=== PATIENT | female | born 1950 | race American Indian/Alaskan Native ===

== ENCOUNTER 2019-09-13 11:05 | Inpatient (IN) | payer MEDICARE ==
[2019-09-13] MEDS ORDERED: MORPHINE 2 MG/1 ML INJ IV ONE (13:14)
--- NOTE | 2019-09-13 13:29 | XRay Report ---
CHEST 1 VIEW INDICATION: chest pain. COMPARISON: 09/24/2013 FINDINGS: Support devices: None. Heart: Mild cardiomegaly. Pulmonary vasculature: Indistinct. Lungs/Pleura: A left apical lung mass is new compared to the previous exam. There is retraction of th e left hilum and new reticular interstitial opacities of the left lung. Subsegmental atelectasis vers us scar in the left midlung. Mild widening of the left pleural space, less than on the last exam. Ret icular interstitial opacities of the right lung are new since the last exam. No pleural effusion. No pneumothorax. Additional findings: Median sternotomy wires. IMPRESSION: 1. New left apical lung mass. 2. Bilateral reticular interstitial opacities are nonspecific. The differential includes CHF, pneumon ia and metastatic disease. Signer Name: Samir Bravo MD Signed: 09/13/2019 1:24 PM Workstation Name: [id number]
[2019-09-13 13:35] LABS: Basophils % (Auto) 1.1 % (0.0-1.8); Eosinophils # (Auto) 0.1 K/mm3 (0.0-0.4); Eosinophils % (Auto) 1.3 % (0.0-4.3); Hematocrit 35.9 % (30.3-42.9); Hemoglobin 11.9 gm/dl (10.1-14.3); Lymphocytes # (Auto) 0.6 K/mm3 (1.2-5.4); Lymphocytes % (Auto) 16.5 % (13.4-35.0); Mean Corpuscular HGB Conc 33 % (30-34); Mean Corpuscular Volume 93 fl (79-97); Monocytes # (Auto) 0.3 K/mm3 (0.0-0.8); Monocytes % (Auto) 7.3 % (0.0-7.3); Platelet Count 140 K/mm3 (140-440); Red Blood Count 3.85 M/mm3 (3.65-5.03); Red Cell Distribution Width 18.5 % (13.2-15.2)
[2019-09-13 13:44] LABS: INR 1.08 (0.87-1.13)
[2019-09-13 13:45] LABS: Partial Thromboplastin Time 29.2 Sec. (24.2-36.6)
--- NOTE | 2019-09-13 13:47 | Emergency Department Report ---
ED Chest Pain HPI - General Chief Complaint: Chest Pain Stated Complaint: CHEST PAIN Time Seen by Provider: 09/13/19 11:19 Source: patient, EMS Mode of arrival: Stretcher Limitations: No Limitations - History of Present Illness Initial Comments: 59-year-old female with history of hypertension, CAD, COPD on 2 L O2, ESRD, lung cancer that was recently diagnosed last week, presents to ED with left-sided chest pain. Patient states pain began during dialysis today. She only received approximately one hour of dialysis. Was last dialyzed 4 days ago, missed her dialysis on yesterday which is why she was at dialysis today. She reports sharp left-sided chest pain radiating into the left arm with associated shortness of breath. Patient reports she was recently diagnosed with lung cancer, has not yet started any treatment. Nephrology: Dr Leo ARREOLA Complaint: chest pain -: This morning Onset: during rest Pain Location: left chest Pain Radiation: LUE Severity: moderate Severity scale (0 -10): 9 Quality: sharp Consistency: constant Improves With: nothing Worsens With: nothing re: dyspnea. denies: nausea, vomting, diaphoresis Other Symptoms: denies: leg swelling - Related Data Home Medications Medication Instructions Recorded Confirmed Last Taken Aspirin [Aspirin BABY CHEW TAB] 81 mg PO QDAY 04/23/13 09/11/13 09/11/13 Atorvastatin [Lipitor] 40 mg PO QHS 04/23/13 09/11/13 09/10/13 Clopidogrel Bisulfate [Plavix] 75 mg PO QDAY 04/23/13 09/11/13 09/11/13 Doxazosin [Cardura] 2 mg PO QDAY 04/23/13 09/11/13 09/11/13 Furosemide [Lasix TAB] 40 mg PO BID 04/23/13 09/11/13 09/11/13 Insulin Aspart (Nf) [NovoLOG 100 6 units SQ TIDAC 04/23/13 09/11/13 07/28/13 UNITS/ML VIAL] Insulin Detemir [Levemir Flexpen] 20 unit SUB-Q QDAY 04/23/13 09/11/13 07/28/13 Isosorbide Mononitrate 120 mg PO QDAY 04/23/13 09/11/13 09/11/13 NIFEdipine [NIFEdipine XL] 90 mg PO QDAY 04/23/13 09/11/13 09/11/13 Nitroglycerin [place] [Nitromist] 1 spray PO PRN PRN 04/23/13 09/11/13 Unknown Oxycodone HCl [oxyCODONE] 5 mg PO Q4-6H PRN 04/23/13 09/11/13 09/11/13 carvediloL [Coreg] 12.5 mg PO BID 04/23/13 09/11/13 09/11/13 cloNIDine [Catapres] 0.2 mg PO TID 04/23/13 09/11/13 09/11/13 hydrALAZINE [Apresoline TAB] 100 mg PO TID 04/23/13 09/11/13 09/11/13 Previous Rx's Medication Instructions Recorded Last Taken Type labetaloL [Labetalol 100mg TAB] 100 mg PO BID #60 tablet 07/24/13 09/11/13 Rx Aspirin [Aspirin BABY CHEW TAB] 81 mg PO QDAY #30 tab.chew 10/03/13 Unknown Rx Clopidogrel [Plavix] 75 mg PO QDAY #30 tablet 10/03/13 Unknown Rx Doxazosin [Cardura] 2 mg PO QDAY #30 tablet 10/03/13 Unknown Rx HYDROcodone/APAP 5-325 [[place] 1 each PO Q4H PRN #60 tablet 10/03/13 Unknown Rx 5-325 mg TAB] NIFEdipine XL [Procardia Xl] 60 mg PO Q12HR #30 tablet 10/03/13 Unknown Rx Ranolazine ER [Ranexa ER] 500 mg PO BID #60 tablet 10/03/13 Unknown Rx Rosuvastatin (Nf) [Crestor] 10 mg PO QHS #30 tablet 10/03/13 Unknown Rx carvediloL [Coreg] 25 mg PO BID #60 tablet 10/03/13 Unknown Rx hydrALAZINE [Apresoline TAB] 100 mg PO Q8HR #90 tablet 10/03/13 Unknown Rx traMADoL [Ultram 50 MG tab] 50 mg PO Q6H PRN #60 tablet 10/03/13 Unknown Rx Allergies Allergy/AdvReac Type Severity Reaction Status Date / Time No Known Allergies Allergy Verified 09/13/19 17:29 Heart Score - HEART Score History: Slightly suspicious EKG: Non-specific Age: > 65 Risk factors: > 3 risk factors or hx of atherosclerotic disease Troponin: 1-3x normal limit HEART Score: 6 ED Review of Systems ROS: Stated complaint: CHEST PAIN Other details as noted in HPI Comment: All other systems reviewed and negative Constitutional: denies: chills, fever Respiratory: shortness of breath Cardiovascular: chest pain ED Past Medical Hx - Past Medical History Hx Hypertension: Yes Hx CVA: Yes (left sided weakness residual) Hx Heart Attack/AMI: Yes (2006 - CABG, 2012 - stents) Hx Congestive Heart Failure: Yes Hx Diabetes: Yes Hx Deep Vein Thrombosis: No Hx Pulmonary Embolism: No Hx Liver Disease: No Hx Renal Disease: Yes Hx Sickle Cell Disease: No Hx Seizures: No Hx Asthma: No Hx COPD: No Hx Tuberculosis: No Hx Dementia: No Hx HIV: No - Surgical History Hx Coronary Stent: Yes Hx Open Heart Surgery: Yes (CABG) Hx Pacemaker: No Hx Internal Defibrillator: No - Social History Smoking Status: Never Smoker Substance Use Type: None - Medications Home Medications: Home Medications Medication Instructions Recorded Confirmed Last Taken Type Aspirin [Aspirin BABY CHEW TAB] 81 mg PO QDAY 04/23/13 09/11/13 09/11/13 History Atorvastatin [Lipitor] 40 mg PO QHS 04/23/13 09/11/13 09/10/13 History Clopidogrel Bisulfate [Plavix] 75 mg PO QDAY 04/23/13 09/11/13 09/11/13 History Doxazosin [Cardura] 2 mg PO QDAY 04/23/13 09/11/13 09/11/13 History Furosemide [Lasix TAB] 40 mg PO BID 04/23/13 09/11/13 09/11/13 History Insulin Aspart (Nf) [NovoLOG 100 6 units SQ TIDAC 04/23/13 09/11/13 07/28/13 History UNITS/ML VIAL] Insulin Detemir [Levemir Flexpen] 20 unit SUB-Q QDAY 04/23/13 09/11/13 07/28/13 History Isosorbide Mononitrate 120 mg PO QDAY 04/23/13 09/11/13 09/11/13 History NIFEdipine [NIFEdipine XL] 90 mg PO QDAY 04/23/13 09/11/13 09/11/13 History Nitroglycerin [place] [Nitromist] 1 spray PO PRN PRN 04/23/13 09/11/13 Unknown History Oxycodone HCl [oxyCODONE] 5 mg PO Q4-6H PRN 04/23/13 09/11/13 09/11/13 History carvediloL [Coreg] 12.5 mg PO BID 04/23/13 09/11/13 09/11/13 History cloNIDine [Catapres] 0.2 mg PO TID 04/23/13 09/11/13 09/11/13 History hydrALAZINE [Apresoline TAB] 100 mg PO TID 04/23/13 09/11/13 09/11/13 History labetaloL [Labetalol 100mg TAB] 100 mg PO BID #60 tablet 07/24/13 09/11/13 09/11/13 Rx Aspirin [Aspirin BABY CHEW TAB] 81 mg PO QDAY #30 tab.chew 10/03/13 Unknown Rx Clopidogrel [Plavix] 75 mg PO QDAY #30 tablet 10/03/13 Unknown Rx Doxazosin [Cardura] 2 mg PO QDAY #30 tablet 10/03/13 Unknown Rx HYDROcodone/APAP 5-325 [[place] 1 each PO Q4H PRN #60 tablet 10/03/13 Unknown Rx 5-325 mg TAB] NIFEdipine XL [Procardia Xl] 60 mg PO Q12HR #30 tablet 10/03/13 Unknown Rx Ranolazine ER [Ranexa ER] 500 mg PO BID #60 tablet 10/03/13 Unknown Rx Rosuvastatin (Nf) [Crestor] 10 mg PO QHS #30 tablet 10/03/13 Unknown Rx carvediloL [Coreg] 25 mg PO BID #60 tablet 10/03/13 Unknown Rx hydrALAZINE [Apresoline TAB] 100 mg PO Q8HR #90 tablet 10/03/13 Unknown Rx traMADoL [Ultram 50 MG tab] 50 mg PO Q6H PRN #60 tablet 10/03/13 Unknown Rx ED Physical Exam - General Limitations: No Limitations General appearance: alert, in no apparent distress - Head Head exam: Present: atraumatic, normocephalic - Eye Eye exam: Present: normal appearance - ENT ENT exam: Present: mucous membranes moist - Neck Neck exam: Present: normal inspection - Respiratory Respiratory exam: Present: normal lung sounds bilaterally. Absent: respiratory distress - Cardiovascular Cardiovascular Exam: Present: regular rate, bradycardia - GI/Abdominal GI/Abdominal exam: Present: soft. Absent: distended, tenderness - Extremities Exam Extremities exam: Present: normal inspection - Neurological Exam Neurological exam: Present: alert, oriented X3 - Psychiatric Psychiatric exam: Present: normal affect, normal mood - Skin Skin exam: Present: warm, dry, intact, normal color ED Course Vital Signs 09/13/19 09/13/19 09/13/19 11:29 11:35 12:22 Temperature 98.2 F Pulse Rate 52 L 54 L Respiratory 10 L 16 Rate Blood Pressure 115/47 Blood Pressure 114/49 [Right] O2 Sat by Pulse 85 92 94 Oximetry 09/13/19 09/13/19 09/13/19 16:26 17:15 17:30 Temperature 98.0 F Pulse Rate 55 L 54 L 55 L Respiratory 13 18 Rate Blood Pressure 111/47 107/53 Blood Pressure 134/47 [Right] O2 Sat by Pulse 98 Oximetry 09/13/19 17:45 Temperature Pulse Rate 51 L Respiratory Rate Blood Pressure 118/44 Blood Pressure [Right] O2 Sat by Pulse Oximetry KRYSTAL score - Krystal Score Age > 65: (1) Yes Aspirin use within the Past 7 Days: (0) No 3 or more CAD Risk Factors: (1) Yes 2 or more Angina events in past 24 hrs: (0) No Known CAD with more than 50% Stenosis: (0) No Elevated Cardiac Markers: (1) Yes ST Deviation Greater than 0.5mm: (0) No KRYSTAL Score: 3 ED Medical Decision Making - Lab Data Result diagrams: 09/13/19 12:46 09/13/19 12:46 - EKG Data -: EKG Interpreted by Or EKG shows normal: sinus rhythm, ST-T waves Rate: normal - EKG Data Interpretation: other (RBBB appearance) - Radiology Data Radiology results: report reviewed, image reviewed - Medical Decision Making 69 yo F with chest pain and SOB. Last dialyzed 4 days ago, partially dialyzed today. CXR shows pulm edema. Due to recent lung CA diagnosis and RBBB appearance of EKG, V/Q scan was obtained to r/o PE. V/Q showed low probability for embolus. Troponin slightly elevated 0.078, although some of this could be due to renal function. Aspirin given by EMS. Spoke w/ decorator consultant, Dr Estrada, who agrees to dialyze the pt. Will admit to hospitalist for further management. - Differential Diagnosis ACS, pneumonia, PE Critical care attestation.: If time is entered above; I have spent that time in minutes in the direct care of this critically ill patient, excluding procedure time. ED Disposition Clinical Impression: ESRD needing dialysis, Pulmonary edema, Acute chest pain Disposition: OP ADMIT IP TO THIS HOSP Is pt being admited?: Yes Condition: Stable Time of Disposition: 16:56
[2019-09-13 14:01] LABS: Calcium 8.9 mg/dL (8.4-10.2)
[2019-09-13 14:37] LABS: Chol/HDL Ratio 2.47 %
[2019-09-13] MEDS ORDERED: SODIUM CHLORIDE 0.9% 100 ML IV PRN (15:43)
--- NOTE | 2019-09-13 16:12 | Nuclear Medicine Report ---
NUCLEAR MEDICINE VENTILATION/PERFUSION LUNG SCAN INDICATION / CLINICAL INFORMATION: chest pain. TECHNIQUE: 17.8 mCi of Xe-133 were given by inhalation. 0.3 mCi of Tc-99m MAA were given by IV. COMPARISON: Chest radiograph dated 09/13/2019. FINDINGS: VENTILATION: There is mild air trapping bilaterally consistent with COPD. Extensive volume loss is no lorie in the left lung. PERFUSION: There is homogeneous distribution of the radiotracer throughout the right lung. There is d ecreased volume in the left lung with poor perfusion and heterogeneous distribution of the radiotrace r although no mismatch segmental perfusion defect is identified. ADDITIONAL FINDINGS: None. IMPRESSION: Low probability for pulmonary embolism. Signer Name: Bill Rodriguez Jr, MD Signed: 09/13/2019 4:07 PM Workstation Name: [id number]
--- NOTE | 2019-09-13 16:51 | History and Physical Report ---
History of Present Illness Chief complaint: I need dialysis History of present illness: 69 YO Female with HTN, CAD S/P CABG and Stent Placement, CVA with LHP, DM, CHF, COPD, Chronic Respiratory Failure on 2L Home Oxygen, ESRD on HD, Lung Cancer presents to ED for evaluation. Patient states that she has experienced chest wall pain over the past 1 week with persistent symptoms over the same timeframe. Patient also acknowledges that she missed dialysis and was last dialyzed 4 days ago. Patient presented to her dialysis clinic for her routine dialysis session and was unable to complete her dialysis session. Patient states that she experienced recurrent left-sided chest pain which is associated with deep breath ing. EMS was notified and upon arrival the patient was found to be in distress and transported to [facility] for further care and evaluation. Patient seen and evaluated in the emergency department. Lab and imaging studies reviewed. Patient found to have end-stage renal disease in need of dialysis, metabolic acidosis, pleuritic chest pain suspected secondary to lung cancer. Patient admitted to medical floor for medical stabilization due to increased risk of decompensation. Patient denies chest pain at time of my evaluation. Patient denies fever, chills, palpitations, shortness of breath, leg swelling, calf Pain, prolonged travel/immobility, productive cough, hemoptysis, individual/family history of DVT/PE/bleeding/blood clotting disorders. Prior admission on 04/05/2017 reviewed. All medication listed at time of admission have been reconciled. Nephrology team consulted in ED for urgent dialysis.. Past History Past Medical History: CAD, cancer, ESRD, heart failure, hypertension Past Surgical History: CABG, Other (cardiac stent placement) Social history: . denies: smoking, alcohol abuse, prescription drug abuse Family history: hypertension Medications and Allergies Allergies Allergy/AdvReac Type Severity Reaction Status Date / Time No Known Allergies Allergy Verified 09/13/19 17:29 Home Medications Medication Instructions Recorded Confirmed Last Taken Type Aspirin [Aspirin BABY CHEW TAB] 81 mg PO QDAY 04/23/13 09/11/13 09/11/13 History Atorvastatin [Lipitor] 40 mg PO QHS 04/23/13 09/11/13 09/10/13 History Clopidogrel Bisulfate [Plavix] 75 mg PO QDAY 04/23/13 09/11/13 09/11/13 History Doxazosin [Cardura] 2 mg PO QDAY 09/09/0409/11/13 09/11/13 History Furosemide [Lasix TAB] 40 mg PO BID 04/23/13 09/11/13 09/11/13 History Insulin Aspart (Nf) [NovoLOG 100 6 units SQ TIDAC 04/23/13 09/11/13 07/28/13 History UNITS/ML VIAL] Insulin Detemir [Levemir Flexpen] 20 unit SUB-Q QDAY 04/23/13 09/11/13 07/28/13 History Isosorbide Mononitrate 120 mg PO QDAY 04/23/13 09/11/13 09/11/13 History NIFEdipine [NIFEdipine XL] 90 mg PO QDAY 04/23/13 09/11/13 09/11/13 History Nitroglycerin [place] [Nitromist] 1 spray PO PRN PRN 04/23/13 09/11/13 Unknown Hi story Oxycodone HCl [oxyCODONE] 5 mg PO Q4-6H PRN 04/23/13 09/11/13 09/11/13 History carvediloL [Coreg] 12.5 mg PO BID 04/23/13 09/11/13 09/11/13 History cloNIDine [Catapres] 0.2 mg PO TID 04/23/13 09/11/13 09/11/13 History hydrALAZINE [Apresoline TAB] 100 mg PO TID 04/23/13 09/11/13 09/11/13 History labetaloL [Labetalol 100mg TAB] 100 mg PO BID #60 tablet 07/24/13 09/11/13 09/11/13 Rx Aspirin [Aspirin BABY CHEW TAB] 81 mg PO QDAY #30 tab.chew 10/03/13 Unknown Rx Clopidogrel [Plavix] 75 mg PO QDAY #30 tablet 10/03/13 Unknown Rx Doxazosin [Cardura] 2 mg PO QDAY #30 tablet 10/03/13 Unknown Rx HYDROcodone/APAP 5-325 [[place] 1 each PO Q4H PRN #60 tablet 10/03/13 Unknown Rx 5-325 mg TAB] NIFEdipine XL [Procardia Xl] 60 mg PO Q12HR #30 tablet 10/03/13 Unknown Rx Ranolazine ER [Ranexa ER] 500 mg PO BID #60 tablet 10/03/13 Unknown Rx Rosuvastatin (Nf) [Crestor] 10 mg PO QHS #30 tablet 10/03/13 Unknown Rx carvediloL [Coreg] 25 mg PO BID #60 tablet 10/03/13 Unknown Rx hydrALAZINE [Apresoline TAB] 100 mg PO Q8HR #90 tablet 10/03/13 Unknown Rx traMADoL [Ultram 50 MG tab] 50 mg PO Q6H PRN #60 tablet 10/03/13 Unknown Rx Active Meds: Active Medications Sodium Chloride (Nacl 0.9%) 100 mls @ 999 mls/hr IV RUBI PRN PRN Reason: Hypotension Review of Systems Constitutional: weakness, no weight loss, no weight gain Ears, nose, mouth and throat: no ear pain, no ear discharge, no tinnitis, no decreased hearing, no nose pain Breasts: no change in shape, no swelling, no mass Cardiovascular: shortness of breath, no chest pain, no orthopnea, no palpitations, no rapid/irregular heart beat Respiratory: no cough, no cough with sputum, no excessive sputum, no hemoptysis Gastrointestinal: no abdominal pain, no nausea, no vomiting, no diarrhea, no constipation Genitourinary Female: no pelvic pain, no flank pain, no menorrhagia, no dysuria, no urinary frequency, no urgency Rectal: no pain, no incontinence, no bleeding Musculoskeletal: no neck stiffness, no neck pain, no shooting arm pain, no arm numbness/tingling, no low back pain Integumentary: no rash, no pruritis, no redness, no sores, no wounds Neurological: no transient paralysis, no paralysis, no weakness, no numbness, no tingling, no seizures Psychiatric: no anxiety, no memory loss, no change in sleep habits, no sleep disturbances, no insomnia, no hypersomnia, no change in appetite Endocrine: no cold intolerance, no heat intolerance, no polyphagia, no excessive thirst, no polydipsia, no polyuria Hematologic/Lymphatic: no easy bruising, no easy bleeding, no lymphadenopathy, no lymphedema Allergic/Immunologic: no urticaria, no allergic rhinitis, no persistent infe ctions, no angioedema Exam - Constitutional Vitals: Temp Pulse Resp BP Pulse Ox 98.2 F 55 L 13 134/47 98 09/13/19 11:29 09/13/19 16:26 09/13/19 16:26 09/13/19 16:26 09/13/19 16:26 General appearance: Present: mild distress - EENT Eyes: Present: PERRL ENT: hearing intact, clear oral mucosa - Neck Neck: Present: supple, normal ROM - Respiratory Respiratory effort: normal Respiratory: bilateral: diminished, rhonchi - Cardiovascular Heart Sounds: Present: S1 & S2. Absent: rub, click - Extremities Extremities: pulses symmetrical, No edema Peripheral Pulses: within normal limits - Abdominal General gastrointestinal: Present: soft, non-tender, non-distended, normal bowel sounds Female genitourinary: Present: normal - Integumentary Integumentary: Present: clear, warm, dry - Musculoskeletal Musculoskeletal: generalized weakness - Psychiatric Psychiatric: appropriate mood/affect, intact judgment & insight - Neurologic Neurologic: CNII-XII intact, moves all extremities Results - Labs CBC & Chem 7: 09/13/19 12:46 09/13/19 12:46 Labs: Abnormal lab results 09/13/19 09/13/19 09/13/19 Range/Units 12:46 12:46 12:46 WBC 3.9 L (4.5-11.0) K/mm3 RDW 18.5 H (13.2-15.2) % Lymph # 0.6 L (1.2-5.4) K/mm3 Seg Neutrophils % 73.8 H (40.0-70.0) % D-Dimer 1316.42 H (0-234) ng/mlDDU Carbon Dioxide 18 L (22-30) mmol/L BUN 52 H (7-17) mg/dL Creatinine 6.4 H (0.7-1.2) mg/dL Glucose 64 L (65-100) mg/dL Troponin T 0.078 H (0.00-0.029) ng/mL NT-Pro-B Natriuret Pep 87674 H (0-900) pg/mL Assessment and Plan - Patient Problems (1) End stage renal disease Current Visit: Yes Status: Acute Plan to address problem: Nephrology consulted in ED, dialysis as per renal team, strict I's/O, daily weight, urine output every shift, avoid nephrotoxic agents, (2) Metabolic acidosis Current Visit: Yes Status: Acute Plan to address problem: Urgent dialysis, BMP, repeat BMP in a.m. (3) Lung cancer Current Visit: Yes Status: Acute Qualifiers: Laterality: left Lung location: unspecified part of lung Qualified Code(s): C34.92 - Malignant neoplasm of unspecified part of left bronchus or lung Plan to address problem: Lung cancer with suspected bony metastasis. Resulting in chest wall pain. Pain control. Supportive care. VQ scan. (4) Acidosis Current Visit: Yes Status: Acute Plan to address problem: IV fluid resuscitation therapy, repeat BMP. (5) DVT prophylaxis Current Visit: Yes Status: Acute Plan to address problem: SCD to bilateral lower extremities while in bed, patient ambulatory (6) Advance care planning Current Visit: Yes Status: Acute Plan to address problem: Patient is full code, disease education conducted, patient knowledges understanding and agreement with care plan. +30 minutes.
--- NOTE | 2019-09-13 16:52 | Consultation ---
History of Present Illness - Reason for Consult end stage renal disease - History of Present Illness 69-year-old lady with medical history significant for end stage renal disease on hemodialysis on Wednesday left lung mass last dialysis was Wednesday prior to today developed chest pain during dialysis after 1 hour patient was brought to the emergency room specifically concerning for pulmonary edema also had pleuritic chest pain she also had a VQ scan to exclude pulmonary embolism Medications and Allergies Allergies Allergy/AdvReac Type Severity Reaction Status Date / Time acetaminophen [From Tylenol] AdvReac Anaphylaxis Verified 02/06/14 11:31 Home Medications Medication Instructions Recorded Confirmed Last Taken Type Aspirin [Aspirin BABY CHEW TAB] 81 mg PO QDAY 04/23/13 09/11/13 09/11/13 History Atorvastatin [Lipitor] 40 mg PO QHS 04/23/13 09/11/13 09/10/13 History Clopidogrel Bisulfate [Plavix] 75 mg PO QDAY 04/23/13 09/11/13 09/11/13 History Doxazosin [Cardura] 2 mg PO QDAY 04/23/13 09/11/13 09/11/13 History Furosemide [Lasix TAB] 40 mg PO BID 04/23/13 09/11/13 09/11/13 History Insulin Aspart (Nf) [NovoLOG 100 6 units SQ TIDAC 04/23/13 09/11/13 07/28/13 History UNITS/ML VIAL] Insulin Detemir [Levemir Flexpen] 20 unit SUB-Q QDAY 04/23/13 09/11/13 07/28/13 History Isosorbide Mononitrate 120 mg PO QDAY 04/23/13 09/11/13 09/11/13 History NIFEdipine [NIFEdipine XL] 90 mg PO QDAY 04/23/13 09/11/13 09/11/13 History Nitroglycerin [place] [Nitromist] 1 spray PO PRN PRN 04/23/13 09/11/13 Unknown History Oxycodone HCl [oxyCODONE] 5 mg PO Q4-6H PRN 04/23/13 09/11/13 09/11/13 History carvediloL [Coreg] 12.5 mg PO BID 04/23/13 09/11/13 09/11/13 History cloNIDine [Catapres] 0.2 mg PO TID 04/23/13 09/11/13 09/11/13 History hydrALAZINE [Apresoline TAB] 100 mg PO TID 04/23/13 09/11/13 09/11/13 History labetaloL [Labetalol 100mg TAB] 100 mg PO BID #60 tablet 07/24/13 09/11/13 09/11/13 Rx Aspirin [Aspirin BABY CHEW TAB] 81 mg PO QDAY #30 tab.chew 10/03/13 Unknown Rx Clopidogrel [Plavix] 75 mg PO QDAY #30 tablet 10/03/13 Unknown Rx Doxazosin [Cardura] 2 mg PO QDAY #30 tablet 10/03/13 Unknown Rx HYDROcodone/APAP 5-325 [[place] 1 each PO Q4H PRN #60 tablet 10/03/13 Unknown Rx 5-325 mg TAB] NIFEdipine XL [Procardia Xl] 60 mg PO Q12HR #30 tablet 10/03/13 Unknown Rx Ranolazine ER [Ranexa ER] 500 mg PO BID #60 tablet 10/03/13 Unknown Rx Rosuvastatin (Nf) [Crestor] 10 mg PO QHS #30 tablet 10/03/13 Unknown Rx carvediloL [Coreg] 25 mg PO BID #60 tablet 10/03/13 Unknown Rx hydrALAZINE [Apresoline TAB] 100 mg PO Q8HR #90 tablet 10/03/13 Unknown Rx traMADoL [Ultram 50 MG tab] 50 mg PO Q6H PRN #60 tablet 10/03/13 Unknown Rx Active Meds: Active Medications Sodium Chloride (Nacl 0.9%) 100 mls @ 999 mls/hr IV RUBI PRN PRN Reason: Hypotension Review of Systems Constitutional: weight gain, anorexia, fatigue, no fever, no chills Ears, nose, mouth and throat: no deferred Cardiovascular: chest pain, orthopnea Respiratory: cough Gastrointestinal: no abdominal pain, no nausea, no vomiting Psychiatric: no anxiety, no memory loss Endocrine: cold intolerance, heat intolerance Hematologic/Lymphatic: no easy bruising, no easy bleeding Exam - Vital Signs Vital signs: Vital Signs Temp Pulse Resp BP Pulse Ox 98.2 F 52 L 10 L 115/47 85 09/13/19 11:29 09/13/19 11:29 09/13/19 11:29 09/13/19 11:29 09/13/19 11:29 - General Appearance General appearance: appears stated age EENT: ATNC, PERRL Neck: Present: neck supple Respiratory: Decreased Breath Sounds Heart: regular, S1S2 Gastrointestinal: Present: normal, normoactive bowel sounds Neurologic: alert and oriented x3 Psychiatric: mood/affect appropriate Results - Lab Results 09/13/19 12:46 09/13/19 12:46 Most recent lab results Calcium 8.9 mg/dL (8.4-10.2) 09/13/19 12:46 Assessment and Plan - Patient Problems (1) End stage renal disease Current Visit: Yes Status: Acute Plan to address problem: End-stage renal disease We'll initiate dialysis Ultrafiltration as tolerated (2) Anemia in chronic kidney disease Current Visit: No Status: Chronic Plan to address problem: Mild anemia Secondary to chronic kidney disease Monitor CBC (3) Acute respiratory failure Current Visit: Yes Status: Acute Plan to address problem: Acute respiratory failure Chest x-ray reviewed left lung mass bilateral pulmonary edema We'll initiate dialysis and ultrafiltration (4) Metabolic acidosis Current Visit: Yes Status: Acute Plan to address problem: Metabolic acidosis secondary to renal failure following missed dialysis We'll initiate dialysis
[2019-09-13] MEDS ORDERED: ONDANSETRON 4 MG/2 ML INJ IV PRN (16:55)
[2019-09-13] MEDS ORDERED: ALBUTEROL 2.5 MG/3 ML NEBU IH PRN (16:55)
[2019-09-13] MEDS ORDERED: MORPHINE 2 MG/1 ML INJ IV PRN (16:55)
[2019-09-13] MEDS ORDERED: ACETAMINOPHEN 325 MG TAB PO PRN (16:55)
[2019-09-13] MEDS ORDERED: traMADol 50 MG TAB PO PRN (16:56)
[2019-09-13] MEDS ORDERED: OXYCODONE HCL 5 MG PO PRN (16:56)
[2019-09-13 17:37] LABS: Hepatitis B Surface Antigen Non-Reactive (Negative); Hepatitis C Virus Antibody Non-Reactive (NonReactive)
[2019-09-13] MEDS: hydrALAZINE 100 MG TAB PO SCH (17:42)
[2019-09-13] MEDS: FUROSEMIDE 40 MG TAB PO SCH (17:42)
[2019-09-13] MEDS ORDERED: SODIUM CHLORIDE*PRIMING MACHINE ONLY FOR DIALYSIS MC ONE (20:19)
[2019-09-13] MEDS ORDERED: hydrALAZINE 25 MG TAB PO SCH (22:00)
[2019-09-13] MEDS ORDERED: carvediloL 25 MG TAB PO SCH (22:00)
[2019-09-13] MEDS ORDERED: FUROSEMIDE 40 MG PO SCH (22:00)
[2019-09-13] MEDS ORDERED: ROSUVASTATIN 10 MG PO SCH (22:00)
[2019-09-13] MEDS: NIFEdipine XL 60 MG TAB PO SCH (22:22)
[2019-09-13] MEDS: HYDROcodone/ACETAMINOPHEN 5-325 MG TAB PO PRN (22:22)
[2019-09-13] MEDS: RANOLAZINE ER 500 MG TAB 12HR PO SCH (22:23)
[2019-09-13] MEDS: carvediloL 12.5 MG TAB PO SCH (22:23)
[2019-09-14 06:13] LABS: Basophils % (Auto) 0.9 % (0.0-1.8); Eosinophils # (Auto) 0.1 K/mm3 (0.0-0.4); Hematocrit 35.9 % (30.3-42.9); Hemoglobin 11.9 gm/dl (10.1-14.3); Lymphocytes # (Auto) 0.4 K/mm3 (1.2-5.4); Lymphocytes % (Auto) 11.6 % (13.4-35.0); Mean Corpuscular HGB Conc 33 % (30-34); Mean Corpuscular Volume 94 fl (79-97); Monocytes # (Auto) 0.4 K/mm3 (0.0-0.8); Monocytes % (Auto) 10.4 % (0.0-7.3); Platelet Count 129 K/mm3 (140-440); Red Blood Count 3.81 M/mm3 (3.65-5.03); Red Cell Distribution Width 18.6 % (13.2-15.2)
[2019-09-14 06:26] LABS: Calcium 8.7 mg/dL (8.4-10.2)
[2019-09-14] MEDS: HYDROcodone/ACETAMINOPHEN 5-325 MG TAB PO PRN (06:58)
[2019-09-14] MEDS: cloNIDine 0.2 MG TAB PO SCH ×3 (09:21→14:13)
[2019-09-14] MEDS: hydrALAZINE 100 MG TAB PO SCH ×3 (09:23→17:40)
[2019-09-14] MEDS: FUROSEMIDE 40 MG TAB PO SCH ×2 (09:23→17:40)
[2019-09-14] MEDS: ASPIRIN 81 MG TAB CHEW PO SCH (09:24)
[2019-09-14] MEDS: DOXAZOSIN 1 MG TAB PO SCH (09:25)
[2019-09-14] MEDS: carvediloL 12.5 MG TAB PO SCH ×2 (09:25→23:48)
[2019-09-14] MEDS: NIFEdipine XL 60 MG TAB PO SCH (09:26)
[2019-09-14] MEDS: CLOPIDOGREL 75 MG TAB PO SCH (09:26)
[2019-09-14] MEDS: RANOLAZINE ER 500 MG TAB 12HR PO SCH ×2 (09:27→23:47)
[2019-09-14] MEDS ORDERED: ISOSORBIDE MONONITRATE 120 MG PO SCH (10:00)
[2019-09-14] MEDS ORDERED: NIFEdipine XL 30 MG TAB PO SCH (10:00)
--- NOTE | 2019-09-14 10:22 | XRay Report ---
CHEST - 1 VIEW INDICATION: esrsd COMPARISON: Yesterday FINDINGS: Support devices: None Heart: Stable cardiomegaly. Lungs/pleura: Stable vascular congestion and volume loss in the left lung. Stable left apical mass v ersus infiltrate. No pneumothorax. Additional findings: None. IMPRESSION: Unchanged exam. Signer Name: Bill Rodriguez Jr, MD Signed: 09/14/2019 10:18 AM Workstation Name: [id number]
--- NOTE | 2019-09-14 12:28 | Progress Note ---
Assessment and Plan - Patient Problems (1) End stage renal disease Current Visit: Yes Status: Acute Plan to address problem: End-stage renal disease continue dialysis Ultrafiltration as tolerated (2) Anemia in chronic kidney disease Current Visit: No Status: Chronic Plan to address problem: Mild anemia Secondary to chronic kidney disease Monitor CBC (3) Acute respiratory failure Current Visit: Yes Status: Acute Plan to address problem: Acute respiratory failure Chest x-ray reviewed left lung mass bilateral pulmonary edema We'll initiate dialysis and ultrafiltration (4) Metabolic acidosis Current Visit: Yes Status: Acute Plan to address problem: Metabolic acidosis secondary to renal failure following missed dialysis Continue hemodialysis Subjective Interval history: 69-year-old lady with medical history significant for end stage renal disease on hemodialysis on Wednesday left lung mass last dialysis was Wednesday prior to today developed chest pain during dialysis after 1 hour patient was brought to the emergency room specifically concerning for pulmonary edema also had pleuritic chest pain she also had a VQ scan to exclude pulmonary embolism Patient seen today complains of some chest discomfort and arm discomfort Workup ongoing nurse at bedside Objective - Vital Signs Vital signs: Vital Signs - 12hr 09/14/19 09/14/19 09/14/19 02:37 07:32 07:34 Temperature 98.8 F 97.6 F Pulse Rate 52 L 74 Respiratory 18 20 Rate Blood Pressure 98/36 88/38 Blood Pressure 108/42 [Right] O2 Sat by Pulse 96 97 Oximetry 09/14/19 09/14/19 09:21 10:00 Temperature Pulse Rate 49 L 49 L Respiratory Rate Blood Pressure 111/48 Blood Pressure [Right] O2 Sat by Pulse Oximetry - General Appearance General appearance: well-developed EENT: ATNC, PERRL Neck: no JVD Respiratory: Present: Clear to Ascultation Cardiology: regular, S1S2 Gastrointestinal: normal, normoactive bowel sounds Integumentary: no rash Neurologic: alert and oriented x3, CN 3-12 intact Psychiatric: mood/affect appropriate - Lab 09/14/19 04:06 09/14/19 04:06 Most recent lab results Calcium 8.7 mg/dL (8.4-10.2) 09/14/19 04:06 - Imaging Chest x-ray: image reviewed (reviewed chest x-ray) Medications & Allergies - Medications Allergies/Adverse Reactions: Allergies No Known Allergies Allergy (Verified 09/13/19 17:29) Home Medications: Home Medications Medication Instructions Recorded Confirmed Last Taken Type Furosemide [Lasix TAB] 80 mg PO BID 04/23/13 09/14/19 09/11/13 History cloNIDine [Catapres] 0.2 mg PO BID 04/23/13 09/14/19 09/11/13 History hydrALAZINE [Apresoline TAB] 50 mg PO BID 04/23/13 09/14/19 09/11/13 History Pantoprazole [Protonix] 40 mg PO BID 09/14/19 09/14/19 Unknown History Active Medications: Generic Name Dose Route Start Last Admin Trade Name Freq PRN Reason Stop Dose Admin Acetaminophen 650 mg 09/13/19 16:55 Tylenol PO Q4H PRN Pain MILD(1-3)/Fever >100.5/HALL Acetaminophen/Hydrocodone Bitart 1 each 09/13/19 16:56 09/14/19 06:58 [place] 5/325 PO 1 each Q4H PRN Administration PAIN Albuterol 2.5 mg 09/13/19 16:55 Proventil IH Q4HRT PRN Shortness Of Breath Aspirin 81 mg 09/14/19 10:00 09/14/19 09:24 Baby Aspirin PO 81 mg QDAY CHUYITA Administration Atorvastatin Calcium 40 mg 09/13/19 22:00 09/13/19 22:23 Lipitor PO 40 mg QHS CHUYITA Administration Carvedilol 12.5 mg 09/13/19 22:00 09/14/19 09:25 Coreg PO Not Given BID CHUYITA Clonidine HCl 0.2 mg 09/13/19 20:00 09/14/19 09:22 Catapres PO Not Given TID CHUYITA Clopidogrel Bisulfate 75 mg 09/14/19 10:00 09/14/19 09:26 Plavix PO 75 mg QDAY CHUYITA Administration Doxazosin Mesylate 2 mg 09/14/19 10:00 09/14/19 09:25 Cardura PO Not Given QDAY [facility]UYITA Furosemide 40 mg 09/13/19 18:00 09/14/19 09:23 Lasix PO Not Given 0600,1800 [facility] Hydralazine HCl 100 mg 09/13/19 18:00 09/14/19 09:30 Apresoline PO Not Given Q8H CHUYITA Sodium Chloride 100 mls @ 999 mls/hr 09/13/19 15:43 Nacl 0.9% IV RUBI PRN Hypotension Isosorbide Mononitrate 120 mg 09/14/19 10:00 09/14/19 09:25 Imdur PO 120 mg QDAY CHUYITA Administration Labetalol HCl 100 mg 09/13/19 22:00 09/14/19 09:26 Labetalol PO Not Given BID [facility] Morphine Sulfate 2 mg 09/13/19 16:55 Morphine IV Q4H PRN Pain, Moderate (4-6) Nifedipine 60 mg 09/13/19 22:00 09/14/19 09:26 Procardia Xl PO Not Given Q12HR [facility] Ondansetron HCl 4 mg 09/13/19 16:55 Zofran IV Q8H PRN Nausea And Vomiting Oxycodone HCl 5 mg 09/13/19 17:20 Roxicodone PO Q6H PRN Pain, Moderate (4-6) Ranolazine 500 mg 09/13/19 22:00 09/14/19 09:27 Ranexa Er PO 500 mg BID CHUYITA Administration Sodium Chloride 10 ml 09/13/19 22:00 09/14/19 09:22 Sodium Chloride Flush Syringe 10 Ml IV 10 ml BID CHUYITA Administration Sodium Chloride 10 ml 09/13/19 16:55 Sodium Chloride Flush Syringe 10 Ml IV PRN PRN LINE FLUSH Tramadol HCl 50 mg 09/13/19 16:56 Ultram PO Q6H PRN Pain, Moderate (4-6)
[2019-09-14] MEDS: oxyCODONE 5 MG TAB PO PRN (16:03)
--- NOTE | 2019-09-14 16:29 | Progress Note ---
Assessment and Plan (1) End stage renal disease Current Visit: Yes Status: Acute Plan to address problem: Nephrology consulted in ED, dialysis as per renal team, strict I's/O, daily weight, urine output every shift, avoid nephrotoxic agents, (2) Chest pain Serial Troponins (3) Metabolic acidosis Current Visit: Yes Status: Acute Plan to address problem: Urgent dialysis, BMP, repeat BMP in a.m. (4) Lung cancer Current Visit: Yes Status: Acute Qualifiers: Laterality: left Lung location: unspecified part of lung Qualified Code(s): C34.92 - Malignant neoplasm of unspecified part of left bronchus or lung Plan to address problem: Lung cancer with suspected bony metastasis. Resulting in chest wall pain. Pain control. Supportive care. VQ scan. (5) Acidosis Current Visit: Yes Status: Acute Plan to address problem: IV fluid resuscitation therapy, repeat BMP. (6) DVT prophylaxis Current Visit: Yes Status: Acute Plan to address problem: SCD to bilateral lower extremities while in bed, patient ambulatory (7) Advance care planning Current Visit: Yes Status: Acute Plan to address problem: Patient is full code, disease education conducted, patient knowledges understanding and agreement with care plan. +30 minutes. Subjective Date of service: 09/14/19 Principal diagnosis: Chest pain 1 day Interval history: 69 YO Female with HTN, CAD S/P CABG and Stent Placement, CVA with LHP, DM, CHF, COPD, Chronic Respiratory Failure on 2L Home Oxygen, ESRD on HD, Lung Cancer presents to ED for evaluation. Patient states that she has experienced chest wall pain over the past 1 week with persistent symptoms over the same timeframe. Patient also acknowledges that she missed dialysis and was last dialyzed 4 days ago. Patient presented to her dialysis clinic for her routine dialysis session and was unable to complete her dialysis session. Patient states that she experienced recurrent left-sided chest pain which is associated with deep breathing. Objective - Constitutional Vitals: Vital Signs - 12hr 09/14/19 09/14/19 09/14/19 07:32 07:34 09:21 Temperature 97.6 F Pulse Rate 74 49 L Respiratory 20 Rate Blood Pressure 98/36 88/38 111/48 O2 Sat by Pulse 97 Oximetry 09/14/19 09/14/19 09/14/19 10:00 11:43 13:16 Temperature 97.7 F Pulse Rate 49 L 45 L Respiratory 20 Rate Blood Pressure 104/38 O2 Sat by Pulse 99 97 Oximetry 09/14/19 13:17 Temperature Pulse Rate 46 L Respiratory Rate Blood Pressure O2 Sat by Pulse 98 Oximetry General appearance: Present: no acute distress, well-nourished - EENT Eyes: PERRL, EOM intact ENT: hearing intact, clear oral mucosa Ears: bilateral: normal - Neck Neck: supple, normal ROM - Respiratory Respiratory effort: normal Respiratory: bilateral: CTA - Breasts Breasts: normal - Cardiovascular Heart rate: 78 Rhythm: regular Heart Sounds: Present: S1 & S2. Absent: gallop, rub Extremities: pulses intact, No edema, normal color, Full ROM - Gastrointestinal General gastrointestinal: Present: soft, non-tender, non-distended, normal bowel sounds - Genitourinary Female genitourinary: normal - Integumentary Integumentary: clear, warm, dry - Musculoskeletal Musculoskeletal: 1, strength equal bilaterally - Neurologic Neurologic: moves all extremities - Psychiatric Psychiatric: memory intact, appropriate mood/affect, intact judgment & insight - Labs CBC & Chem 7: 09/14/19 04:06 09/14/19 04:06 Labs: Abnormal lab results 09/13/19 09/14/19 09/14/19 Range/Units 15:58 04:06 04:06 WBC 3.7 L (4.5-11.0) K/mm3 RDW 18.6 H (13.2-15.2) % Plt Count 129 L (140-440) K/mm3 Lymph % (Auto) 11.6 L (13.4-35.0) % [place] % (Auto) 10.4 H (0.0-7.3) % Lymph # 0.4 L (1.2-5.4) K/mm3 Seg Neutrophils % 75.1 H (40.0-70.0) % Potassium 3.1 L (3.6-5.0) mmol/L Chloride 97.4 L (98-107) mmol/L BUN 25 H (7-17) mg/dL Creatinine 3.9 H (0.7-1.2) mg/dL Troponin T 0.075 H (0.00-0.029) ng/mL
[2019-09-14] MEDS ORDERED: POTASSIUM CHLORIDE ER 20 MEQ TAB PO SCH (16:30)
[2019-09-14] MEDS ORDERED: LORazepam 1 MG TAB PO PRN (17:46)
[2019-09-14] MEDS: LORazepam 0.5 MG TAB PO PRN (18:08)
[2019-09-15] MEDS: cloNIDine 0.2 MG TAB PO SCH ×3 (07:23→20:30)
[2019-09-15] MEDS: NIFEdipine XL 60 MG TAB PO SCH ×3 (07:23→22:08)
[2019-09-15] MEDS: hydrALAZINE 100 MG TAB PO SCH ×3 (07:24→18:48)
[2019-09-15] MEDS: FUROSEMIDE 40 MG TAB PO SCH ×2 (07:24→18:48)
[2019-09-15] MEDS: DOXAZOSIN 1 MG TAB PO SCH (09:12)
[2019-09-15] MEDS: carvediloL 12.5 MG TAB PO SCH ×2 (09:14→21:52)
--- NOTE | 2019-09-15 10:43 | Progress Note ---
Assessment and Plan Assessment and plan: End stage renal disease Nephrology following and continue dialysis as per renal team, strict I's/O, daily weight, urine output every shift, avoid nephrotoxic agents, Chest pain Serial Troponins, KRYSTAL score 3. Cardiology consultation. Metabolic acidosis Follow-up BMP Lung cancer Lung cancer with suspected bony metastasis. Resulting in chest wall pain. Pain control. Supportive care. VQ scan. DVT prophylaxis SCD to bilateral lower extremities while in bed, patient ambulatory History Interval history: Patient still complains of left-sided chest pain. Patient seen in hemodialysis. Hospitalist Physical - Constitutional Vitals: Temp Pulse Resp BP Pulse Ox 98.2 F 58 L 20 126/55 97 09/15/19 07:03 09/15/19 10:00 09/15/19 07:03 09/15/19 07:03 09/15/19 07:03 General appearance: Present: no acute distress, well-nourished - EENT Eyes: Present: PERRL, EOM intact ENT: hearing intact, clear oral mucosa, dentition normal - Neck Neck: Present: supple, normal ROM - Respiratory Respiratory effort: normal Respiratory: bilateral: CTA - Cardiovascular Rhythm: regular Heart Sounds: Present: S1 & S2. Absent: gallop, rub - Extremities Extremities: no ischemia, No edema, Full ROM - Abdominal General gastrointestinal: soft, non-tender, non-distended, normal bowel sounds - Integumentary Integumentary: Present: clear, warm, dry - Neurologic Neurologic: CNII-XII intact, moves all extremities KRYSTAL score - [place]rystal Score Age > 65: (1) Yes Aspirin use within the Past 7 Days: (0) No 3 or more CAD Risk Factors: (1) Yes 2 or more Angina events in past 24 hrs: (0) No Known CAD with more than 50% Stenosis: (0) No Elevated Cardiac Markers: (1) Yes ST Deviation Greater than 0.5mm: (0) No KRYSTAL Score: 3 Results - Labs CBC & Chem 7: 09/14/19 04:06 09/14/19 04:06 Labs: Laboratory Last Values WBC 3.7 K/mm3 (4.5-11.0) L 09/14/19 04:06 RBC 3.81 M/mm3 (3.65-5.03) 09/14/19 04:06 Hgb 11.9 gm/dl (10.1-14.3) 09/14/19 04:06 Hct 35.9 % (30.3-42.9) 09/14/19 04:06 MCV 94 fl (79-97) 09/14/19 04:06 MCH 31 pg (28-32) 09/14/19 04:06 MCHC 33 % (30-34) 09/14/19 04:06 RDW 18.6 % (13.2-15.2) H 09/14/19 04:06 Plt Count 129 K/mm3 (140-440) L 09/14/19 04:06 Lymph % (Auto) 11.6 % (13.4-35.0) L 09/14/19 04:06 [place] % (Auto) 10.4 % (0.0-7.3) H 09/14/19 04:06 Eos % (Auto) 2.0 % (0.0-4.3) 09/14/19 04:06 Baso % (Auto) 0.9 % (0.0-1.8) 09/14/19 04:06 Lymph # 0.4 K/mm3 (1.2-5.4) L 09/14/19 04:06 [place] # 0.4 K/mm3 (0.0-0.8) 09/14/19 04:06 Eos # 0.1 K/mm3 (0.0-0.4) 09/14/19 04:06 Baso # 0.0 K/mm3 (0.0-0.1) 09/14/19 04:06 Seg Neutrophils % 75.1 % (40.0-70.0) H 09/14/19 04:06 Seg Neutrophils # 2.8 K/mm3 (1.8-7.7) 09/14/19 04:06 PT 14.1 Sec. (12.2-14.9) 09/13/19 12:46 INR 1.08 (0.87-1.13) 09/13/19 12:46 APTT 29.2 Sec. (24.2-36.6) 09/13/19 12:46 D-Dimer 1316.42 ng/mlDDU (0-234) H 09/13/19 12:46 Sodium 139 mmol/L (137-145) 09/14/19 04:06 Potassium 3.1 mmol/L (3.6-5.0) L 09/14/19 04:06 Chloride 97.4 mmol/L (98-107) L 09/14/19 04:06 Carbon Dioxide 26 mmol/L (22-30) D 09/14/19 04:06 Anion Gap 19 mmol/L 09/14/19 04:06 BUN 25 mg/dL (7-17) H 09/14/19 04:06 Creatinine 3.9 mg/dL (0.7-1.2) H 09/14/19 04:06 Estimated GFR 14 ml/min 09/14/19 04:06 BUN/Creatinine Ratio 6 % 09/14/19 04:06 Glucose 74 mg/dL (65-100) 09/14/19 04:06 POC Glucose 62 (70-105) L 09/15/19 07:14 Calcium 8.7 mg/dL (8.4-10.2) 09/14/19 04:06 Troponin T 0.075 ng/mL (0.00-0.029) H 09/13/19 15:58 NT-Pro-B Natriuret Pep 78386 pg/mL (0-900) H 09/13/19 12:46 Triglycerides 144 mg/dL (2-149) 09/13/19 12:46 Cholesterol 146 mg/dL (50-199) 09/13/19 12:46 LDL Cholesterol Direct 64 mg/dL (50-130) 09/13/19 12:46 HDL Cholesterol 59 mg/dL (40-59) 09/13/19 12:46 Cholesterol/HDL Ratio 2.47 % 09/13/19 12:46 Hepatitis A IgM Ab Non-reactive (NonReactive) 09/13/19 15:58 Hep Bs Antigen Non-reactive (Negative) 09/13/19 15:58 Hep B Core IgM Ab Non-reactive (NonReactive) 09/13/19 15:58 Hepatitis C Antibody Non-reactive (NonReactive) 09/13/19 15:58 Active Medications - Current Medications Current Medications: Generic Name Dose Route Start Last Admin Trade Name Freq PRN Reason Stop Dose Admin Acetaminophen 650 mg 09/13/19 16:55 Tylenol PO Q4H PRN Pain MILD(1-3)/Fever >100.5/HALL Acetaminophen/Hydrocodone Bitart 1 each 09/13/19 16:56 09/14/19 06:58 [place] 5/325 PO 1 each Q4H PRN Administration PAIN Albuterol 2.5 mg 09/13/19 16:55 Proventil IH Q4HRT PRN Shortness Of Breath Aspirin 81 mg 09/14/19 10:00 09/14/19 09:24 Baby Aspirin PO 81 mg QDAY CHUYITA Administration Atorvastatin Calcium 40 mg 09/13/19 22:00 09/14/19 23:47 Lipitor PO 40 mg QHS CHUYITA Administration Carvedilol 12.5 mg 09/13/19 22:00 09/15/19 09:14 Coreg PO Not Given BID [facility] Clonidine HCl 0.2 mg 09/13/19 20:00 09/15/19 07:23 Catapres PO Not Given TID [facility] Clopidogrel Bisulfate 75 mg 09/14/19 10:00 09/14/19 09:26 Plavix PO 75 mg QDAY [facility] Administration Doxazosin Mesylate 2 mg 09/14/19 10:00 09/15/19 09:12 Cardura PO Not Given QDAY [facility] Furosemide 40 mg 09/13/19 18:00 09/15/19 07:24 Lasix PO Not Given 0600,1800 [facility] Hydralazine HCl 100 mg 09/13/19 18:00 09/15/19 09:12 Apresoline PO Not Given Q8H [facility] Sodium Chloride 100 mls @ 999 mls/hr 09/13/19 15:43 Nacl 0.9% IV RUBI PRN Hypotension Isosorbide Mononitrate 120 mg 09/14/19 10:00 09/14/19 09:25 Imdur PO 120 mg QDAY [facility] Administration Labetalol HCl 100 mg 09/13/19 22:00 09/15/19 09:13 Labetalol PO Not Given BID [facility] Lorazepam 0.5 mg 09/14/19 17:51 09/14/19 18:08 Ativan PO 0.5 mg Q3H PRN Administration Agitation Morphine Sulfate 2 mg 09/13/19 16:55 Morphine IV Q4H PRN Pain, Moderate (4-6) Nifedipine 60 mg 09/13/19 22:00 09/15/19 09:13 Procardia Xl PO Not Given Q12HR [facility] Ondansetron HCl 4 mg 09/13/19 16:55 09/14/19 17:35 Zofran IV 4 mg Q8H PRN Administration Nausea And Vomiting Oxycodone HCl 5 mg 09/13/19 17:20 09/14/19 16:03 Roxicodone PO 5 mg Q6H PRN Administration Pain, Moderate (4-6) Ranolazine 500 mg 09/13/19 22:00 09/14/19 23:47 Ranexa Er PO 500 mg BID CHUYITA Administration Sodium Chloride 10 ml 09/13/19 22:00 09/15/19 07:24 Sodium Chloride Flush Syringe 10 Ml IV Not Given BID CHUYITA Sodium Chloride 10 ml 09/13/19 16:55 Sodium Chloride Flush Syringe 10 Ml IV PRN PRN LINE FLUSH Tramadol HCl 50 mg 09/13/19 16:56 Ultram PO Q6H PRN Pain, Moderate (4-6)
[2019-09-15] MEDS ORDERED: SODIUM CHLORIDE*PRIMING MACHINE ONLY FOR DIALYSIS MC ONE (10:55)
--- NOTE | 2019-09-15 12:00 | Consultation ---
History of Present Illness Consult date: 09/15/19 Consult reason: chest pain History of present illness: This is a 69 year old woman with multiple medical problems. She has end stage renal disease on hemodialysis. She has a known history of ascending aortic aneurysm previously deemed inoperable. Patient has a cardiac history of complex multivessel CAD with 3 vessel CABG at [place] in 2007. A cardiac cath done in 2010 reports patent GRACE to LAD and patent SVG to MOM. The SVG to RCA was occluded with distal vessel filled by L collaterals. A severe lesion in the proximal AV groove circumflex was stented to perfuse a large distal OM. LV function was preserved. Patient was sent from dialysis with complaints of chest pain while undergoing dialysis. Of note, patient reports she was admitted to [facility] with similar symptoms where she was diagnosed with left upper lobe lung cancer with mets to the liver. Patient reports left sided chest pain has been intermittent for several weeks. Cycled troponin are mildly elevated in the setting of renal failure. An ECG is sinus rhythm, no acute ischemic changes. A cardiac consultation has been requested for chest pain evaluation. Past History Past Medical History: CAD, cancer, ESRD, heart failure, hypertension Past Surgical History: CABG, Other (cardiac stent placement) Social history: . denies: smoking, alcohol abuse, prescription drug abuse Family history: hypertension Medications and Allergies Allergies Allergy/AdvReac Type Severity Reaction Status Date / Time No Known Allergies Allergy Verified 09/13/19 17:29 Home Medications Medication Instructions Recorded Confirmed Last Taken Type Furosemide [Lasix TAB] 80 mg PO BID 04/23/13 09/14/19 09/11/13 History cloNIDine [Catapres] 0.2 mg PO BID 04/23/13 09/14/19 09/11/13 History hydrALAZINE [Apresoline TAB] 50 mg PO BID 04/23/13 09/14/19 09/11/13 History Ferric Citrate (Nf) [Auryxia] 210 mg PO AC 09/14/19 09/14/19 Unknown History Pantoprazole [Protonix] 40 mg PO BID 09/14/19 09/14/19 Unknown History Active Meds: Active Medications Acetaminophen (Tylenol) 650 mg PO Q4H PRN PRN Reason: Pain MILD(1-3)/Fever >100.5/HALL Acetaminophen/Hydrocodone Bitart ([place] 5/325) 1 each PO Q4H PRN PRN Reason: PAIN Last Admin: 09/14/19 06:58 Dose: 1 each Documented by: Albuterol (Proventil) 2.5 mg IH Q4HRT PRN PRN Reason: Shortness Of Breath Aspirin (Baby Aspirin) 81 mg PO QDAY [facility] Last Admin: 09/14/19 09:24 Dose: 81 mg Documented by: Atorvastatin Calcium (Lipitor) 40 mg PO QHS [facility] Last Admin: 09/14/19 23:47 Dose: 40 mg Documented by: Carvedilol (Coreg) 12.5 mg PO BID [facility] Last Admin: 09/15/19 09:14 Dose: Not Given Documented by: Clonidine HCl (Catapres) 0.2 mg PO TID [facility] Last Admin: 09/15/19 07:23 Dose: Not Given Documented by: Clopidogrel Bisulfate (Plavix) 75 mg PO QDAY [facility] Last Admin: 09/14/19 09:26 Dose: 75 mg Documented by: Doxazosin Mesylate (Cardura) 2 mg PO QDAY [facility] Last Admin: 09/15/19 09:12 Dose: Not Given Documented by: Furosemide (Lasix) 40 mg PO 0600,1800 [facility] Last Admin: 09/15/19 07:24 Dose: Not Given Documented by: Hydralazine HCl (Apresoline) 100 mg PO Q8H [facility] Last Admin: 09/15/19 09:12 Dose: Not Given Documented by: Sodium Chloride (Nacl 0.9%) 100 mls @ 999 mls/hr IV RUBI PRN PRN Reason: Hypotension Isosorbide Mononitrate (Imdur) 120 mg PO QDAY [facility] Last Admin: 09/14/19 09:25 Dose: 120 mg Documented by: Labetalol HCl (Labetalol) 100 mg PO BID [facility] Last Admin: 09/15/19 09:13 Dose: Not Given Documented by: Lorazepam (Ativan) 0.5 mg PO Q3H PRN PRN Reason: Agitation Last Admin: 09/14/19 18:08 Dose: 0.5 mg Documented by: Morphine Sulfate (Morphine) 2 mg IV Q4H PRN PRN Reason: Pain, Moderate (4-6) Nifedipine (Procardia Xl) 60 mg PO Q12HR [facility] Last Admin: 09/15/19 09:13 Dose: Not Given Documented by: Ondansetron HCl (Zofran) 4 mg IV Q8H PRN PRN Reason: Nausea And Vomiting Last Admin: 09/14/19 17:35 Dose: 4 mg Documented by: Oxycodone HCl (Roxicodone) 5 mg PO Q6H PRN PRN Reason: Pain, Moderate (4-6) Last Admin: 09/14/19 16:03 Dose: 5 mg Documented by: Ranolazine (Ranexa Er) 500 mg PO BID [facility] Last Admin: 09/14/19 23:47 Dose: 500 mg Documented by: Sodium Chloride (Sodium Chloride Flush Syringe 10 Ml) 10 ml IV BID [facility] Last Admin: 09/15/19 07:24 Dose: Not Given Documented by: Sodium Chloride (Sodium Chloride Flush Syringe 10 Ml) 10 ml IV PRN PRN PRN Reason: LINE FLUSH Tramadol HCl (Ultram) 50 mg PO Q6H PRN PRN Reason: Pain, Moderate (4-6) Physical Examination Vital Signs Temp Pulse Resp BP Pulse Ox 98.2 F 52 L 10 L 115/47 85 09/13/19 11:29 09/13/19 11:29 09/13/19 11:29 09/13/19 11:29 09/13/19 11:29 General appearance: no acute distress HEENT: Positive: PERRL Cardiac: Positive: Reg Rate and Rhythm Lungs: Positive: Decreased Breath Sounds Neuro: Positive: Grossly Intact Results 09/14/19 04:06 09/14/19 04:06
[2019-09-15] MEDS: RANOLAZINE ER 500 MG TAB 12HR PO SCH ×2 (14:10→22:01)
[2019-09-15] MEDS: CLOPIDOGREL 75 MG TAB PO SCH (14:10)
[2019-09-15] MEDS: ASPIRIN 81 MG TAB CHEW PO SCH (14:11)
[2019-09-15] MEDS: LORazepam 0.5 MG TAB PO PRN (15:08)
[2019-09-15] MEDS: oxyCODONE 5 MG TAB PO PRN (15:08)
--- NOTE | 2019-09-15 16:08 | Progress Note ---
Assessment and Plan - Patient Problems (1) End stage renal disease Current Visit: Yes Status: Acute Plan to address problem: End-stage renal disease continue dialysis Ultrafiltration as tolerated (2) Anemia in chronic kidney disease Current Visit: No Status: Chronic Plan to address problem: Mild anemia Secondary to chronic kidney disease Monitor CBC (3) Acute respiratory failure Current Visit: Yes Status: Acute Plan to address problem: Acute respiratory failure Chest x-ray reviewed left lung mass bilateral pulmonary edema We'll initiate dialysis and ultrafiltration (4) Metabolic acidosis Current Visit: Yes Status: Acute Plan to address problem: Metabolic acidosis secondary to renal failure following missed dialysis Continue hemodialysis Subjective Principal diagnosis: Chest pain 1 day Interval history: 69-year-old lady with medical history significant for end stage renal disease on hemodialysis on Wednesday left lung mass last dialysis was Wednesday prior to today developed chest pain during dialysis after 1 hour patient was brought to the emergency room specifically concerning for pulmonary edema also had pleuritic chest pain she also had a VQ scan to exclude pulmonary embolism Patient seen today reports significant improvement in chest discomfort and arm discomfort I attest I saw the patient on dialysis Denies any fever or chills Objective - Vital Signs Vital signs: Vital Signs - 12hr 09/15/19 09/15/19 09/15/19 07:03 09:15 09:30 Temperature 98.2 F 98.2 F Pulse Rate 50 L 50 L 54 L Respiratory 20 18 Rate Blood Pressure 126/55 133/58 132/57 O2 Sat by Pulse 97 Oximetry 09/15/19 09/15/19 09/15/19 09:45 10:00 10:15 Temperature Pulse Rate 56 L 55 L 58 L Respiratory Rate Blood Pressure 141/64 142/63 147/68 O2 Sat by Pulse Oximetry 09/15/19 09/15/19 09/15/19 10:30 10:45 11:00 Temperature Pulse Rate 59 L 69 62 Respiratory Rate Blood Pressure 149/67 148/68 147/69 O2 Sat by Pulse Oximetry 09/15/19 09/15/19 09/15/19 11:15 11:30 11:45 Temperature Pulse Rate 61 84 78 Respiratory Rate Blood Pressure 156/73 139/71 134/72 O2 Sat by Pulse Oximetry 09/15/19 09/15/19 09/15/19 12:00 12:15 12:30 Temperature Pulse Rate 63 65 68 Respiratory Rate Blood Pressure 136/68 156/68 122/68 O2 Sat by Pulse Oximetry 09/15/19 09/15/19 09/15/19 12:45 13:10 14:11 Temperature 98.0 F Pulse Rate 78 78 63 Respiratory 18 Rate Blood Pressure 122/68 143/71 134/54 O2 Sat by Pulse Oximetry 09/15/19 14:16 Temperature Pulse Rate 63 Respiratory Rate Blood Pressure 134/54 O2 Sat by Pulse Oximetry - General Appearance General appearance: well-developed, well-nourished EENT: ATNC, PERRL Neck: no JVD Respiratory: Present: Clear to Ascultation Cardiology: regular, S1S2 Gastrointestinal: normal, normoactive bowel sounds Integumentary: no rash Neurologic: alert and oriented x3, CN 3-12 intact Musculoskeletal: deferred Psychiatric: mood/affect appropriate - Lab 09/14/19 04:06 09/14/19 04:06 Most recent lab results Calcium 8.7 mg/dL (8.4-10.2) 09/14/19 04:06 - Imaging Chest x-ray: image reviewed (CXR reviewed with pulmonary edema, lung opacity. ) Medications & Allergies - Medications Allergies/Adverse Reactions: Allergies No Known Allergies Allergy (Verified 09/13/19 17:29) Home Medications: Home Medications Medication Instructions Recorded Confirmed Last Taken Type Furosemide [Lasix TAB] 80 mg PO BID 04/23/13 09/14/19 09/11/13 History cloNIDine [Catapres] 0.2 mg PO BID 04/23/13 09/14/19 09/11/13 History hydrALAZINE [Apresoline TAB] 50 mg PO BID 04/23/13 09/14/19 09/11/13 History Ferric Citrate (Nf) [Auryxia] 210 mg PO AC 09/14/19 09/14/19 Unknown History Pantoprazole [Protonix] 40 mg PO BID 09/14/19 09/14/19 Unknown History Active Medications: Generic Name Dose Route Start Last Admin Trade Name Freq PRN Reason Stop Dose Admin Acetaminophen 650 mg 09/13/19 16:55 Tylenol PO Q4H PRN Pain MILD(1-3)/Fever >100.5/HALL Acetaminophen/Hydrocodone Bitart 1 each 09/13/19 16:56 09/14/19 06:58 [place] 5/325 PO 1 each Q4H PRN Administration PAIN Albuterol 2.5 mg 09/13/19 16:55 Proventil IH Q4HRT PRN Shortness Of Breath Aspirin 81 mg 09/14/19 10:00 09/15/19 14:11 Baby Aspirin PO 81 mg QDAY CHUYITA Administration Atorvastatin Calcium 40 mg 09/13/19 22:00 09/14/19 23:47 Lipitor PO 40 mg QHS CHUYITA Administration Carvedilol 12.5 mg 09/13/19 22:00 09/15/19 09:14 Coreg PO Not Given BID [facility] Clonidine HCl 0.2 mg 09/13/19 20:00 09/15/19 14:16 Catapres PO 0.2 mg TID [facility] Administration Clopidogrel Bisulfate 75 mg 09/14/19 10:00 09/15/19 14:10 Plavix PO 75 mg QDAY [facility] Administration Doxazosin Mesylate 2 mg 09/14/19 10:00 09/15/19 09:12 Cardura PO Not Given QDAY [facility] Furosemide 40 mg 09/13/19 18:00 09/15/19 07:24 Lasix PO Not Given 0600,1800 [facility] Hydralazine HCl 100 mg 09/13/19 18:00 09/15/19 09:12 Apresoline PO Not Given Q8H [facility] Sodium Chloride 100 mls @ 999 mls/hr 09/13/19 15:43 Nacl 0.9% IV RUBI PRN Hypotension Isosorbide Mononitrate 120 mg 09/14/19 10:00 09/15/19 14:11 Imdur PO 120 mg QDAY [facility] Administration Labetalol HCl 100 mg 09/13/19 22:00 09/15/19 09:13 Labetalol PO Not Given BID [facility] Lorazepam 0.5 mg 09/14/19 17:51 09/15/19 15:08 Ativan PO 0.5 mg Q3H PRN Administration Agitation Morphine Sulfate 2 mg 09/13/19 16:55 Morphine IV Q4H PRN Pain, Moderate (4-6) Nifedipine 60 mg 09/13/19 22:00 09/15/19 09:13 Procardia Xl PO Not Given Q12HR [facility] Ondansetron HCl 4 mg 09/13/19 16:55 09/14/19 17:35 Zofran IV 4 mg Q8H PRN Administration Nausea And Vomiting Oxycodone HCl 5 mg 09/13/19 17:20 09/15/19 15:08 Roxicodone PO 5 mg Q6H PRN Administration Pain, Moderate (4-6) Ranolazine 500 mg 09/13/19 22:00 09/15/19 14:10 Ranexa Er PO 500 mg BID CHUYITA Administration Sodium Chloride 10 ml 09/13/19 22:00 09/15/19 14:12 Sodium Chloride Flush Syringe 10 Ml IV 10 ml BID CHUYITA Administration Sodium Chloride 10 ml 09/13/19 16:55 Sodium Chloride Flush Syringe 10 Ml IV PRN PRN LINE FLUSH Tramadol HCl 50 mg 09/13/19 16:56 Ultram PO Q6H PRN Pain, Moderate (4-6)
[2019-09-16] MEDS: hydrALAZINE 100 MG TAB PO SCH (02:32)
[2019-09-16] MEDS: FUROSEMIDE 40 MG TAB PO SCH (06:50)
--- NOTE | 2019-09-16 09:14 | Discharge Summary ---
Providers - Providers Date of Admission: 09/13/19 16:55 Date of discharge: 09/16/19 Attending physician: CARMEN LAIRD 09/13/19 14:22 Consult to Physician [CONS] Stat Comment: has seen patient in the e/r lauren Consulting Provider: BLAINE KELLER Physician Instructions: Reason For Exam: dialysis 09/15/19 10:43 Consult to Physician [CONS] Routine Comment: Consulting Provider: KARTHIK CORDOBA Physician Instructions: Reason For Exam: CP Primary care physician: CRISTO CARDONA Hospitalization Reason for admission: cp Condition: Stable Hospital course: 69 year old woman with multiple medical problems including but not limited to end stage renal disease on hemodialysis, ascending aortic aneurysm previously deemed inoperable. Also, a cardiac history of complex multivessel CAD with 3 vessel CABG at [place] in 2007. A cardiac cath done in 2010 reports patent GRACE to LAD and patent SVG to MOM. The SVG to RCA was occluded with distal vessel filled by L collaterals. A severe lesion in the proximal AV groove circumflex was stented to perfuse a large distal OM. LV function was preserved. Patient was sent from dialysis with complaints of chest pain while undergoing dialysis. Of note, patient reports she was admitted to with similar symptoms where she was diagnosed with left upper lobe lung cancer with mets to the liver. Patient reports left sided chest pain has been intermittent for several weeks. Work-up on this hospitalization include cycled troponin that were mildly elevated in the setting of renal failure. An ECG is sinus rhythm, no acute ischemic changes. A cardiac consultation was requested for chest pain evaluation. Cardiology recommended that given the severe medical comorbidities and advanced age for lung cancer that the best approach would be hospice/palliative care. Patient is not a candidate for invasive cardiac management. Previous attempts at coronary angiography failed secondary to anatomy. No further inpatient cardiac workup is planned. The patient was seen by nephrology and received her appropriate hemodialysis for which she missed prior to discharge. Patient is felt to receive maximal hospital benefit and will be discharged home. Patient should have further follow-up with her oncologist regarding her lung CA, aggressive treatment versus hospice. Dedicated discharge time 32 minutes. Disposition: TO HOME OR SELFCARE Time spent for discharge: 32 - Discharge Diagnoses (1) Acute chest pain Status: Acute (2) ESRD needing dialysis Status: Acute (3) Lung cancer Status: Acute Qualifiers: Laterality: left Lung location: unspecified part of lung Qualified Code(s): C34.92 - Malignant neoplasm of unspecified part of left bronchus or lung Core Measure Documentation - Palliative Care Palliative Care/ Comfort Measures: Not Applicable - Core Measures Any of the following diagnoses?: none Exam - Constitutional Vitals: Temp Pulse Resp BP Pulse Ox 98.7 F 56 L 18 125/48 98 09/16/19 07:34 09/16/19 07:34 09/16/19 07:34 09/16/19 07:34 09/16/19 07:34 General appearance: Present: no acute distress, well-nourished - EENT Eyes: Present: PERRL ENT: hearing intact, clear oral mucosa - Neck Neck: Present: supple, normal ROM - Respiratory Respiratory effort: normal Respiratory: bilateral: CTA - Cardiovascular Heart Sounds: Present: S1 & S2. Absent: rub, click - Extremities Extremities: pulses symmetrical, No edema Peripheral Pulses: within normal limits - Abdominal General gastrointestinal: Present: soft, non-tender, non-distended, normal bowel sounds Female genitourinary: Present: normal - Integumentary Integumentary: Present: clear, warm, dry - Musculoskeletal Musculoskeletal: gait normal, strength equal bilaterally - Psychiatric Psychiatric: appropriate mood/affect, intact judgment & insight - Neurologic Neurologic: CNII-XII intact, moves all extremities Plan Activity: advance as tolerated Weight Bearing Status: Weight Bear as Tolerated Diet: regular Care Plan Goals: Follow-up with oncology with regards to decision for aggressive treatment of lung CA versus hospice Follow up with: PRIMARY CARE, [Referring] - 3-5 Days Prescriptions: hydrALAZINE [Apresoline TAB] 50 mg PO BID #60 cloNIDine [Catapres] 0.2 mg PO BID #60 HYDROcodone/APAP 5-325 [[place] 5-325 mg TAB] 1 each PO Q4H PRN #12 tablet PRN Reason: PAIN Pantoprazole [Protonix TAB] 40 mg PO BID #60 Ranolazine ER [Ranexa ER] 500 mg PO BID #60 tablet
[2019-09-16] MEDS: RANOLAZINE ER 500 MG TAB 12HR PO SCH (09:17)
[2019-09-16] MEDS: ASPIRIN 81 MG TAB CHEW PO SCH (09:18)
[2019-09-16] MEDS: CLOPIDOGREL 75 MG TAB PO SCH (09:18)
[2019-09-16] MEDS: oxyCODONE 5 MG TAB PO PRN (09:21)
[2019-09-16 14:33] VITALS: BP 127/55
== END 2019-09-16 15:15 | disposition home or self-care (01) | DRG 180 ==
LOC: ED 11:05 → 2B-ACE 16:55
PROVIDERS: ADMIT Internal Medicine; ATTEND Hospitalist
PROC: 5A1D70Z Performance of Urinary Filtration, Intermittent, Less than 6 Hours Per Day (ICD-10-PCS; principal; 2019-09-13)
PROC: 5A1D70Z Performance of Urinary Filtration, Intermittent, Less than 6 Hours Per Day (ICD-10-PCS; 2019-09-15)
DX: C34.92 Malignant neoplasm of unspecified part of left bronchus or lung (principal); J96.00 Acute respiratory failure, unspecified whether with hypoxia or hypercapnia; N18.6 End stage renal disease; E87.2 Acidosis; C78.7 Secondary malignant neoplasm of liver and intrahepatic bile duct; I13.2 Hypertensive heart and chronic kidney disease with heart failure and with stage 5 chronic kidney disease, or end stage renal disease; D63.1 Anemia in chronic kidney disease; I25.10 Atherosclerotic heart disease of native coronary artery without angina pectoris; D69.6 Thrombocytopenia, unspecified; I50.9 Heart failure, unspecified; Z82.49 Family history of ischemic heart disease and other diseases of the circulatory system; Z99.2 Dependence on renal dialysis; Z95.5 Presence of coronary angioplasty implant and graft; Z95.1 Presence of aortocoronary bypass graft; Z79.899 Other long term (current) drug therapy
CPT/HCPCS: 36415; 71045; 78582; 80048; 80061; 80074; 82962; 83880; 84484; 85025; 85379; 85610; 85730; 93005; 93010; 94760; G0378; A9270-GY; A9540; A9558; J2270; J2405; J7030

== ENCOUNTER 2019-09-23 16:24 | Inpatient (IN) | payer MEDICARE ==
[2019-09-23] MEDS ORDERED: DEXTROSE 50% IN WATER (25GM) 50 ML SYRINGE IV ONE ×3 (16:33→17:52)
[2019-09-23] MEDS ORDERED: ONDANSETRON 4 MG/2 ML INJ IV ONE (16:57)
[2019-09-23] MEDS ORDERED: MORPHINE 2 MG/1 ML INJ IV ONE ×2 (16:57→20:19)
[2019-09-23] MEDS ORDERED: LORazepam 2 MG/ML VIAL IV ONE (17:13)
[2019-09-23] MEDS ORDERED: SODIUM CHLORIDE 0.9% 500 ML 500 ML IV ONE (17:22)
--- NOTE | 2019-09-23 17:22 | Emergency Department Report ---
ED Shortness of Breath HPI - General Chief Complaint: Dyspnea/Respdistress Stated Complaint: AHSAN Time Seen by Provider: 09/23/19 16:55 Source: patient Mode of arrival: Stretcher Limitations: No Limitations - History of Present Illness Initial Comments: Patient is a 69-year-old female who has a past medical history of newly diagnosed lung cancer as well as end-stage renal disease hypertension who is presenting with chest pain. Per the patient's last discharge note by Dr. Grajeda approximately 10 days ago the patient has a history of " end stage renal disease on hemodialysis, ascending aortic aneurysm previously deemed inoperable. Also, a cardiac history of complex multivessel CAD with 3 vessel CABG at [facility] in 2007. A cardiac cath done in 2010 reports patent GRACE to LAD and patent SVG to MOM. The SVG to RCA was occluded with distal vessel filled by L collaterals. A severe lesion in the proximal AV groove circumflex was stented to perfuse a large distal OM. LV function was preserved." Patient was at dialysis and started having chest pain or shortness of breath. Paramedics noted that the patient was hypoxic in the mid 80s. Patient states the pain is a heaviness in the center chest with no radiation. Patient denies fever cough cold or congestion at this time. - Related Data Home Medications Medication Instructions Recorded Confirmed Last Taken Furosemide [Lasix TAB] 80 mg PO BID 04/23/13 09/14/19 09/11/13 Ferric Citrate (Nf) [Auryxia] 210 mg PO AC 09/14/19 09/14/19 Unknown Previous Rx's Medication Instructions Recorded Last Taken Type ALBUTEROL NEB's [Proventil 0.083% 2.5 mg IH Q4HRT PRN nebu 09/16/19 Unknown Rx NEBS] Aspirin [Aspirin BABY CHEW TAB] 81 mg PO QDAY tab.chew 09/16/19 Unknown Rx AtorvaSTATin [Lipitor] 40 mg PO QHS tablet 09/16/19 Unknown Rx Clopidogrel [Plavix] 75 mg PO QDAY tablet 09/16/19 Unknown Rx Doxazosin [Cardura] 2 mg PO QDAY tablet 09/16/19 Unknown Rx Furosemide [Lasix TAB] 40 mg PO 0600,1800 tablet 09/16/19 Unknown Rx HYDROcodone/APAP 5-325 [[place] 1 each PO Q4H PRN #12 tablet 09/16/19 Unknown Rx 5-325 mg TAB] ISOSORBIDE MONOnitrate [Imdur ER] 120 mg PO QDAY tablet 09/16/19 Unknown Rx NIFEdipine XL [Procardia Xl] 60 mg PO Q12HR tablet 09/16/19 Unknown Rx Pantoprazole [Protonix TAB] 40 mg PO BID #60 09/16/19 Unknown Rx Ranolazine ER [Ranexa ER] 500 mg PO BID #60 tablet 09/16/19 Unknown Rx carvediloL [Coreg] 12.5 mg PO BID tablet 09/16/19 Unknown Rx cloNIDine [Catapres] 0.2 mg PO BID #60 09/16/19 Unknown Rx hydrALAZINE [Apresoline TAB] 50 mg PO BID #60 09/16/19 Unknown Rx hydrALAZINE [Apresoline TAB] 100 mg PO Q8H tab 09/16/19 Unknown Rx Allergies Allergy/AdvReac Type Severity Reaction Status Date / Time No Known Allergies Allergy Verified 09/13/19 17:29 ED Review of Systems ROS: Stated complaint: AHSAN Other details as noted in HPI Comment: All other systems reviewed and negative ED Past Medical Hx - Past Medical History Previous Medical History?: Yes Hx Hypertension: Yes Hx CVA: Yes (left sided weakness residual) Hx Heart Attack/AMI: Yes (2006 - CABG, 2012 - stents) Hx Congestive Heart Failure: Yes Hx Diabetes: Yes Hx Deep Vein Thrombosis: No Hx Pulmonary Embolism: No Hx Liver Disease: No Hx Renal Disease: Yes (Tue, Thur, Sat) Hx Sickle Cell Disease: No Hx Seizures: No Hx Asthma: No Hx COPD: No Hx Tuberculosis: No Hx Dementia: No Hx HIV: No - Surgical History Past Surgical History?: Yes Hx Coronary Stent: Yes Hx Open Heart Surgery: Yes (CABG) Hx Pacemaker: No Hx Internal Defibrillator: No Additional Surgical History: Hysterectomy, Bowel - Social History Smoking Status: Current Every Day Smoker - Medications Home Medications: Home Medications Medication Instructions Recorded Confirmed Last Taken Type Furosemide [Lasix TAB] 80 mg PO BID 04/23/13 09/14/19 09/11/13 History Ferric Citrate (Nf) [Auryxia] 210 mg PO AC 09/14/19 09/14/19 Unknown History ALBUTEROL NEB's [Proventil 0.083% 2.5 mg IH Q4HRT PRN nebu 09/16/19 Unknown Rx NEBS] Aspirin [Aspirin BABY CHEW TAB] 81 mg PO QDAY tab.chew 09/16/19 Unknown Rx AtorvaSTATin [Lipitor] 40 mg PO QHS tablet 09/16/19 Unknown Rx Clopidogrel [Plavix] 75 mg PO QDAY tablet 09/16/19 Unknown Rx Doxazosin [Cardura] 2 mg PO QDAY tablet 09/16/19 Unknown Rx Furosemide [Lasix TAB] 40 mg PO 0600,1800 tablet 09/16/19 Unknown Rx HYDROcodone/APAP 5-325 [[place] 1 each PO Q4H PRN #12 tablet 09/16/19 Unknown Rx 5-325 mg TAB] ISOSORBIDE MONOnitrate [Imdur ER] 120 mg PO QDAY tablet 09/16/19 Unknown Rx NIFEdipine XL [Procardia Xl] 60 mg PO Q12HR tablet 09/16/19 Unknown Rx Pantoprazole [Protonix TAB] 40 mg PO BID #60 09/16/19 Unknown Rx Ranolazine ER [Ranexa ER] 500 mg PO BID #60 tablet 09/16/19 Unknown Rx carvediloL [Coreg] 12.5 mg PO BID tablet 09/16/19 Unknown Rx cloNIDine [Catapres] 0.2 mg PO BID #60 09/16/19 Unknown Rx hydrALAZINE [Apresoline TAB] 50 mg PO BID #60 09/16/19 Unknown Rx hydrALAZINE [Apresoline TAB] 100 mg PO Q8H tab 09/16/19 Unknown Rx ED Physical Exam - General Limitations: No Limitations General appearance: alert, anxious, in distress - Head Head exam: Present: atraumatic, normocephalic - Eye Eye exam: Present: normal appearance, PERRL, EOMI - ENT ENT exam: Present: mucous membranes moist - Neck Neck exam: Present: normal inspection - Respiratory Respiratory exam: Present: respiratory distress, rhonchi (the left base posteriorly), accessory muscle use. Absent: normal lung sounds bilaterally, wheezes, rales - Cardiovascular Cardiovascular Exam: Present: tachycardia, irregular rhythm. Absent: systolic murmur, diastolic murmur, rubs, gallop - GI/Abdominal GI/Abdominal exam: Present: soft, normal bowel sounds. Absent: distended, tenderness, guarding, rebound - Extremities Exam Extremities exam: Present: normal inspection, other (the left arm AV graft) - Back Exam Back exam: Present: normal inspection - Neurological Exam Neurological exam: Present: alert, oriented X3 - Psychiatric Psychiatric exam: Present: normal affect, normal mood - Skin Skin exam: Present: warm, dry, intact, normal color. Absent: rash ED Course Vital Signs 09/23/19 09/23/19 09/23/19 16:56 17:09 17:17 Temperature 97.7 F Pulse Rate 144 H 132 H 141 H Respiratory 15 26 H 20 Rate Blood Pressure 93/62 Blood Pressure 93/62 [Right] O2 Sat by Pulse 99 99 100 Oximetry 09/23/19 09/23/19 09/23/19 19:51 20:15 20:31 Temperature Pulse Rate 68 67 Respiratory 13 15 Rate Blood Pressure 132/81 137/78 137/78 Blood Pressure [Right] O2 Sat by Pulse 91 98 98 Oximetry 09/23/19 09/23/19 09/23/19 20:45 21:00 21:15 Temperature Pulse Rate 66 65 66 Respiratory 19 16 15 Rate Blood Pressure 134/66 133/63 133/63 Blood Pressure [Right] O2 Sat by Pulse 98 98 98 Oximetry - Reevaluation(s) Reevaluation #1: 09/23/19 17:21 Patient is continued to complain of shortness of breath. Patient's waveform on the pulse ox is inconsistent and not getting a good reading. The time she's reading 88% however there are other times where we get mid 90s. The patient is has persistent left lung rhonchi. Patient will be placed on BiPAP. After BiPAP was initiated patient states her chest pain shortness of breath and anxiety type symptoms have decreased. The Ativan has been held and will continue to monitor the patient's laboratory studies. Patient has a blood pressure 93 systolic however we will continue to monitor this as the blood pres sure drop is likely secondary to the patient's recent dialysis. Reevaluation #2: 09/23/19 17:43 Patient blood glucose dropped to 20. Patient was given D50 Reevaluation #3: 09/23/19 19:57 H and is at nuclear medicine currently getting a VQ scan to rule out pulmonary embolus risk. Patient did have a nuclear scan last week as well which was low probability. Hospice has been consulted to see the patient as well. The region of the note from the hospitalist on discharge hospice was being considered but a formal presentation to the family and the patient regarding hospice was not done. Reevaluation #4: 09/23/19 21:17 Patient states she does not want to do hospice at this time. Patient's daughter states that she is already started paperwork with hospice but until they get the [place] from the patient and this is on hold. Patient will be admitted. Patient's heart rate has improved after 500 mL of fluid. Outpatient blood pressure is improved as well. Chest x-ray interpretation is difficult to determine which parts of her lung x-ray is infiltrated in what is solid mass. Patient was covered for pneumonia. Patient given cefepime. Patient was downgraded from BiPAP to 3 L nasal cannula is maintaining O2 sat which is within normal limits. Reevaluation #5: 09/23/19 21:26 Patient's second troponin has significantly elevated. Patient will be admitted to the hospitalist service and will likely need cardiology consultation. - EJ/Peripheral Line Arm R Time Out Performed: No Indications: nurses unable to establis Skin Cleansed in Sterile Fashion: Yes Size: 20 Patient Tolerated Procedure: other (IV was placed into an artery. After flushing artery dipped below pressure was held. Patient is maintained good pulses to the distal hand.) Neck R Indications: nurses unable to establis Skin Cleansed in Sterile Fashion: Yes Size: 20 Dressing Placed: Tegaderm, tape Patient Tolerated Procedure: well ED Medical Decision Making - Lab Data Result diagrams: 09/23/19 16:29 09/23/19 17:55 Lab Results 09/23/19 09/23/19 09/23/19 Range/Units 16:29 16:29 16:29 WBC 3.8 L (4.5-11.0) K/mm3 RBC 4.06 (3.65-5.03) M/mm3 Hgb 12.7 (10.1-14.3) gm/dl Hct 36.8 (30.3-42.9) % MCV 91 (79-97) fl MCH 31 (28-32) pg MCHC 35 H (30-34) % RDW 17.5 H (13.2-15.2) % Plt Count 189 (140-440) K/mm3 Lymph % (Auto) 20.2 (13.4-35.0) % [place] % (Auto) 7.1 (0.0-7.3) % Eos % (Auto) 1.2 (0.0-4.3) % Baso % (Auto) 0.8 (0.0-1.8) % Lymph # 0.8 L (1.2-5.4) K/mm3 [place] # 0.3 (0.0-0.8) K/mm3 Eos # 0.0 (0.0-0.4) K/mm3 Baso # 0.0 (0.0-0.1) K/mm3 Seg Neutrophils % 70.7 H (40.0-70.0) % Seg Neutrophils # 2.7 (1.8-7.7) K/mm3 PT 13.3 (12.2-14.9) Sec. INR 1.00 (0.87-1.13) APTT 28.7 (24.2-36.6) Sec. D-Dimer 1554.13 H (0-234) ng/mlDDU Sodium 135 L (137-145) mmol/L Potassium 3.7 (3.6-5.0) mmol/L Chloride 94.4 L (98-107) mmol/L Carbon Dioxide 19 L (22-30) mmol/L Anion Gap 25 mmol/L BUN 25 H (7-17) mg/dL Creatinine 3.8 H (0.7-1.2) mg/dL Estimated GFR 14 ml/min BUN/Creatinine Ratio 7 % Glucose 67 (65-100) mg/dL POC Glucose (70-105) Lactic Acid (0.7-2.0) mmol/L Calcium 9.5 (8.4-10.2) mg/dL Troponin T 0.078 H (0.00-0.029) ng/mL Triglycerides 190 H (2-149) mg/dL Cholesterol 171 (50-199) mg/dL LDL Cholesterol Direct 81 (50-130) mg/dL HDL Cholesterol 62 H (40-59) mg/dL Cholesterol/HDL Ratio 2.75 % 09/23/19 09/23/19 09/23/19 Range/Units 17:55 17:55 18:26 WBC (4.5-11.0) K/mm3 RBC (3.65-5.03) M/mm3 Hgb (10.1-14.3) gm/dl Hct (30.3-42.9) % MCV (79-97) fl MCH (28-32) pg MCHC (30-34) % RDW (13.2-15.2) % Plt Count (140-440) K/mm3 Lymph % (Auto) (13.4-35.0) % [place] % (Auto) (0.0-7.3) % Eos % (Auto) (0.0-4.3) % Baso % (Auto) (0.0-1.8) % Lymph # (1.2-5.4) K/mm3 [place] # (0.0-0.8) K/mm3 Eos # (0.0-0.4) K/mm3 Baso # (0.0-0.1) K/mm3 Seg Neutrophils % (40.0-70.0) % Seg Neutrophils # (1.8-7.7) K/mm3 PT (12.2-14.9) Sec. INR (0.87-1.13) APTT (24.2-36.6) Sec. D-Dimer (0-234) ng/mlDDU Sodium (137-145) mmol/L Potassium (3.6-5.0) mmol/L Chloride (98-107) mmol/L Carbon Dioxide (22-30) mmol/L Anion Gap mmol/L BUN (7-17) mg/dL Creatinine (0.7-1.2) mg/dL Estimated GFR ml/min BUN/Creatinine Ratio % Glucose 243 H (65-100) mg/dL POC Glucose 69 L (70-105) Lactic Acid 2.30 H* (0.7-2.0) mmol/L Calcium (8.4-10.2) mg/dL Troponin T (0.00-0.029) ng/mL Triglycerides (2-149) mg/dL Cholesterol (50-199) mg/dL LDL Cholesterol Direct (50-130) mg/dL HDL Cholesterol (40-59) mg/dL Cholesterol/HDL Ratio % 09/23/19 09/23/19 09/23/19 Range/Units 19:28 20:33 20:33 WBC (4.5-11.0) K/mm3 RBC (3.65-5.03) M/mm3 Hgb (10.1-14.3) gm/dl Hct (30.3-42.9) % MCV (79-97) fl MCH (28-32) pg MCHC (30-34) % RDW (13.2-15.2) % Plt Count (140-440) K/mm3 Lymph % (Auto) (13.4-35.0) % [place] % (Auto) (0.0-7.3) % Eos % (Auto) (0.0-4.3) % Baso % (Auto) (0.0-1.8) % Lymph # (1.2-5.4) K/mm3 [place] # (0.0-0.8) K/mm3 Eos # (0.0-0.4) K/mm3 Baso # (0.0-0.1) K/mm3 Seg Neutrophils % (40.0-70.0) % Seg Neutrophils # (1.8-7.7) K/mm3 PT (12.2-14.9) Sec. INR (0.87-1.13) APTT (24.2-36.6) Sec. D-Dimer (0-234) ng/mlDDU Sodium (137-145) mmol/L Potassium (3.6-5.0) mmol/L Chloride (98-107) mmol/L Carbon Dioxide (22-30) mmol/L Anion Gap mmol/L BUN (7-17) mg/dL Creatinine (0.7-1.2) mg/dL Estimated GFR ml/min BUN/Creatinine Ratio % Glucose (65-100) mg/dL POC Glucose 142 H (70-105) Lactic Acid 2.80 H* (0.7-2.0) mmol/L Calcium (8.4-10.2) mg/dL Troponin T 0.813 H* D (0.00-0.029) ng/mL Triglycerides (2-149) mg/dL Cholesterol (50-199) mg/dL LDL Cholesterol Direct (50-130) mg/dL HDL Cholesterol (40-59) mg/dL Cholesterol/HDL Ratio % - EKG Data -: EKG Interpreted by Fl - EKG Data 09/23/19 21:21 Initial EKG shows sinus tachycardia rate of 132. Veteran is normal intervals are normal. The patient has T-wave inversions in lateral leads. There are occasional PVCs and PACs. Compared this EKG to past EKGs patient has usually a normal sinus rhythm with sinus arrhythmia. The patient's second EKG at 2104 shows that the patient's heart rate is decreased to 66 she is in a sinus rhythm axis is normal intervals are normal. His continued lateral T-wave inversions. Possible right bundle branch block present. No ST segment elevations are present. - Radiology Data Patient: BRITTANY DUCKWORTH MR#: [id number] : 1950 Acct:[id number] Age/Sex: 69 / F ADM Date: 09/23/19 Loc: ED Attending Dr: Ordering Physician: DYLAN HESTER MD Date of Service: 09/23/19 Procedure(s): XR chest 1V ap Accession Number(s): [id number] cc: DYLAN HESTER MD Fluoro Time In Minutes: Chest single view INDICATION: Chest pain with dyspnea IMPRESSION: Severe mixed bilateral interstitial and airspace disease identified bilaterally. There is extensive airspace density noted over the left apex, unchanged, suspicious for underlying mass. Persistent left-sided pleural effusion. Signer Name: Dino Reddy MD Signed: 09/23/2019 6:10 PM Workstation Name: [id number] Ordering Physician: DYLAN HESTER MD Date of Service: 09/23/19 Procedure(s): NM lung scan perf/vent Accession Number(s): [id number] cc: DYLAN HESTER MD Nuclear medicine pulmonary VQ scan INDICATION: Lung cancer with elevated d-dimer TECHNIQUE: A total of 23.1 mCi of xenon-133 gas and 4 mCi of technetium 99 MAA injected IV per protocol COMPARISON: Chest radiograph performed the same day FINDINGS: There are multiple matched defects identified throughout the left lung demonstrates poor perfusion which is grossly heterogeneous. No mismatch defect identified within the right lung IMPRESSION: Low probability for PTE. Signer Name: Dino Reddy MD Signed: 09/23/2019 8:04 PM Workstation Name: [id number] Critical Care Time: Yes (45) Critical care attestation.: If time is entered above; I have spent that time in minutes in the direct care of this critically ill patient, excluding procedure time. ED Disposition Clinical Impression: NSTEMI (non-ST elevated myocardial infarction), Hypoxia CAD (coronary artery disease) Qualifiers: Coronary Disease-Associated Artery/Lesion type: unspecified vessel or lesion type [place] vs. transplanted heart: craig heart Associated angina: with unstable angina Qualified Code(s): I25.110 - Atherosclerotic heart disease of craig coronary artery with unstable angina pectoris Acute respiratory failure Qualifiers: Respiratory failure complication: hypoxia Qualified Code(s): J96.01 - Acute respiratory failure with hypoxia Disposition: 09 OP ADMIT IP TO THIS HOSP Is pt being admited?: Yes Does the pt Need Aspirin: No Condition: Stable Time of Disposition: 21:30
[2019-09-23 17:26] LABS: Basophils % (Auto) 0.8 % (0.0-1.8); Eosinophils % (Auto) 1.2 % (0.0-4.3); Hematocrit 36.8 % (30.3-42.9); Hemoglobin 12.7 gm/dl (10.1-14.3); Lymphocytes # (Auto) 0.8 K/mm3 (1.2-5.4); Lymphocytes % (Auto) 20.2 % (13.4-35.0); Mean Corpuscular HGB Conc 35 % (30-34); Mean Corpuscular Volume 91 fl (79-97); Monocytes # (Auto) 0.3 K/mm3 (0.0-0.8); Monocytes % (Auto) 7.1 % (0.0-7.3); Platelet Count 189 K/mm3 (140-440); Red Blood Count 4.06 M/mm3 (3.65-5.03); Red Cell Distribution Width 17.5 % (13.2-15.2)
[2019-09-23 17:38] LABS: Partial Thromboplastin Time 28.7 Sec. (24.2-36.6)
[2019-09-23 17:43] LABS: Calcium 9.5 mg/dL (8.4-10.2)
[2019-09-23 17:58] LABS: Chol/HDL Ratio 2.75 %
--- NOTE | 2019-09-23 18:15 | XRay Report ---
Chest single view INDICATION: Chest pain with dyspnea IMPRESSION: Severe mixed bilateral interstitial and airspace disease identified bilaterally. There is extensive airspace density noted over the left apex, unchanged, suspicious for underlying mass. Pers istent left-sided pleural effusion. Signer Name: Dino Reddy MD Signed: 09/23/2019 6:10 PM Workstation Name: [id number]
[2019-09-23] MEDS: CEFEPIME/NS 2 GM/100 ML 2 GM/100 ML BAG IV SCH ×2 (18:21→21:45)
--- NOTE | 2019-09-23 20:08 | Nuclear Medicine Report ---
Nuclear medicine pulmonary VQ scan INDICATION: Lung cancer with elevated d-dimer TECHNIQUE: A total of 23.1 mCi of xenon-133 gas and 4 mCi of technetium 99 MAA injected IV per protoc ol COMPARISON: Chest radiograph performed the same day FINDINGS: There are multiple matched defects identified throughout the left lung demonstrates poor pe rfusion which is grossly heterogeneous. No mismatch defect identified within the right lung IMPRESSION: Low probability for PTE. Signer Name: Dino Reddy MD Signed: 09/23/2019 8:04 PM Workstation Name: [id number]
[2019-09-23] MEDS ORDERED: ASPIRIN 325 MG TAB PO ONE (21:30)
--- NOTE | 2019-09-23 22:01 | History and Physical Report ---
History of Present Illness History of present illness: 69-year-old male with a history of hypertension, diabetes, CHF, coronary artery disease, CVA, end-stage renal disease on dialysis, AAA, metastatic lung cancer comes emergency room with complaints of chest pain. It is in the left chest which he describes as a pressure, intermittent every 15 to 20 minutes, intensity 6/10, no radiation, associated with left arm numbness and pain, cannot identify exacerbating factor. Admits to shortness of breath, nausea, no diaphoresis or palpitation. Patient was admitted at [facility] 2 weeks ago for chest pain, she was just discharged from the hospital on 16 September for chest pain. Cardiology recommended medical management, attempt at cardiac cath in 2016 failed due to the gigantic ascending aortic aneurysm containing large ulcerated thrombus. Patient has been admitted for non-STEMI Status post hemodialysis today, she arrived in the emergency room hypotensive, she was given IV fluid, cefepime Review of systems Constitutional: no weight loss, fever, chills Ears, eyes, nose, mouth and throat: no nasal congestion, no nasal discharge, no sinus pressure, no vision change, no red eye. Neck: No neck pain or rigidity. Cardiovascular: no palpitations Respiratory: No cough, +shortness of breath Gastrointestinal: no abdominal pain hematochezia Genitourinary : no frequency , no hematuria Musculoskeletal: no joint swelling or muscle ache Integumentary: no rash, no pruritis Neurological: no parathesias, no numbness, no focal weakness Endocrine: no cold or heat intolerance, no polyuria or polydipsia Hematologic/Lymphatic: no easy bruising, no easy bleeding, no gland swelling Allergic/Immunologic: no urticaria, no angioedema. PAST MEDICAL HISTORY: CHF, coronary artery disease, hypertension, diabetes, end- stage renal disease, AAA, metastatic lung cancer PAST SURGICAL HISTORY: AV fistula, CABG, hysterectomy SOCIAL HISTORY: No alcohol, no drugs, smokes 5 cigarettes a day Y HISTORY: Hypertension Medications and Allergies Allergies Allergy/AdvReac Type Severity Reaction Status Date / Time No Known Allergies Allergy Verified 09/13/19 17:29 Home Medications Medication Instructions Recorded Confirmed Last Taken Type Ferric Citrate (Nf) [Auryxia] 210 mg PO AC 09/14/19 09/24/19 Unknown History ALBUTEROL NEB's [Proventil 0.083% 2.5 mg IH Q4HRT PRN nebu 09/16/19 09/24/19 Unknown Rx NEBS] Aspirin [Aspirin BABY CHEW TAB] 81 mg PO QDAY tab.chew 09/16/19 09/24/19 Unknown Rx AtorvaSTATin [Lipitor] 40 mg PO QHS tablet 09/16/19 09/24/19 Unknown Rx Clopidogrel [Plavix] 75 mg PO QDAY tablet 09/16/19 09/24/19 Unknown Rx Doxazosin [Cardura] 2 mg PO QDAY tablet 09/16/19 09/24/19 Unknown Rx Furosemide [Lasix TAB] 40 mg PO 0600,1800 tablet 09/16/19 09/24/19 Unknown Rx HYDROcodone/APAP 5-325 [[place] 1 each PO Q4H PRN #12 tablet 09/16/19 09/24/19 Unknown Rx 5-325 mg TAB] ISOSORBIDE MONOnitrate [Imdur ER] 120 mg PO QDAY tablet 09/16/19 09/24/19 Unknown Rx NIFEdipine XL [Procardia Xl] 60 mg PO Q12HR tablet 09/16/19 09/24/19 Unknown Rx Pantoprazole [Protonix TAB] 40 mg PO BID #60 09/16/19 09/24/19 Unknown Rx Ranolazine ER [Ranexa ER] 500 mg PO BID #60 tablet 09/16/19 09/24/19 Unknown Rx carvediloL [Coreg] 12.5 mg PO BID tablet 09/16/19 09/24/19 Unknown Rx cloNIDine [Catapres] 0.2 mg PO BID #60 09/16/19 09/24/19 Unknown Rx hydrALAZINE [Apresoline TAB] 100 mg PO Q8H tab 09/16/19 09/24/19 Unknown Rx Active Meds: Active Medications Cefepime HCl (Cefepime/Ns 2 Gm/100 Ml) 2 gm in 100 mls @ 200 mls/hr IV Q8HR [facility]; Protocol Last Admin: 09/23/19 18:21 Dose: 200 mls/hr Documented by: Exam - Physical Exam Narrative exam: Gen. appearance: Patient lying in bed, no apparent distress HEENT: Normocephalic, atraumatic, pupils equally round and reactive to light, eyes are , extraocular movement intact, and no sclericterus,. No JVD or thyromegaly or nodule,neck supple, no carotid bruit ,mucous membranes moist, no exudate or erythema Heart: S1, S2, regular rate and rhythm Lungs:Clear bilaterally, breathing comfortable Abdomen: Positive bowel sounds, non-tender, nondistended, no organomegaly Extremity:no edema cyanosis, clubbing Skin: no rash, dry, warm Neuro: Cranial nerves 2-12 intact, motor and sensory intact - Constitutional Vitals: Temp Pulse Resp BP Pulse Ox 97.7 F 66 15 133/63 98 09/23/19 17:09 09/23/19 21:15 09/23/19 21:15 09/23/19 21:15 09/23/19 21:15 Results - Labs CBC & Chem 7: 09/23/19 16:29 09/23/19 17:55 Labs: Abnormal lab results 09/23/19 09/23/19 09/23/19 Range/Units 16:29 16:29 16:29 WBC 3.8 L (4.5-11.0) K/mm3 MCHC 35 H (30-34) % RDW 17.5 H (13.2-15.2) % Lymph # 0.8 L (1.2-5.4) K/mm3 Seg Neutrophils % 70.7 H (40.0-70.0) % D-Dimer 1554.13 H (0-234) ng/mlDDU Sodium 135 L (137-145) mmol/L Chloride 94.4 L (98-107) mmol/L Carbon Dioxide 19 L (22-30) mmol/L BUN 25 H (7-17) mg/dL Creatinine 3.8 H (0.7-1.2) mg/dL Glucose (65-100) mg/dL POC Glucose (70-105) Lactic Acid (0.7-2.0) mmol/L Troponin T 0.078 H (0.00-0.029) ng/mL Triglycerides 190 H (2-149) mg/dL HDL Cholesterol 62 H (40-59) mg/dL 09/23/19 09/23/19 09/23/19 Range/Units 17:55 17:55 18:26 WBC (4.5-11.0) K/mm3 MCHC (30-34) % RDW (13.2-15.2) % Lymph # (1.2-5.4) K/mm3 Seg Neutrophils % (40.0-70.0) % D-Dimer (0-234) ng/mlDDU Sodium (137-145) mmol/L Chloride (98-107) mmol/L Carbon Dioxide (22-30) mmol/L BUN (7-17) mg/dL Creatinine (0.7-1.2) mg/dL Glucose 243 H (65-100) mg/dL POC Glucose 69 L (70-105) Lactic Acid 2.30 H* (0.7-2.0) mmol/L Troponin T (0.00-0.029) ng/mL Triglycerides (2-149) mg/dL HDL Cholesterol (40-59) mg/dL 09/23/19 09/23/19 09/23/19 Range/Units 19:28 20:33 20:33 WBC (4.5-11.0) K/mm3 MCHC (30-34) % RDW (13.2-15.2) % Lymph # (1.2-5.4) K/mm3 Seg Neutrophils % (40.0-70.0) % D-Dimer (0-234) ng/mlDDU Sodium (137-145) mmol/L Chloride (98-107) mmol/L Carbon Dioxide (22-30) mmol/L BUN (7-17) mg/dL Creatinine (0.7-1.2) mg/dL Glucose (65-100) mg/dL POC Glucose 142 H (70-105) Lactic Acid 2.80 H* (0.7-2.0) mmol/L Troponin T 0.813 H* D (0.00-0.029) ng/mL Triglycerides (2-149) mg/dL HDL Cholesterol (40-59) mg/dL Assessment and Plan v/q scan low probability for pulmonary emboli Assessment Non-STEMI/CAD Check cardiac enzymes, consult cardiology Start aspirin, plavix, morphine hold beta-jade, SURJIT inhibitor, patient was hypotensive upon admission Blood pressure will not tolerate antihypertensives Check CT head before initiating heparin drip, rule out mets End-stage renal disease on dialysis Consult renal for dialysis CHF, stable Diabetes Check fingersticks, initiate insulin sliding scale Metastatic lung cancer DVT prophylaxis Addendum Patient states she is allergic to heparin, hold heparin products
[2019-09-23] MEDS ORDERED: ACETAMINOPHEN 325 MG TAB PO PRN (22:22)
[2019-09-23] MEDS ORDERED: oxyCODONE /ACETAMINOPHEN 5-325MG TAB PO PRN (22:32)
[2019-09-23 23:39] LABS: Creatine Kinase MB 80.3 ng/mL (0.0-4.0)
[2019-09-24] MEDS ORDERED: DEXTROSE 50% IN WATER (25GM) 50 ML SYRINGE IV PRN (00:20)
--- NOTE | 2019-09-24 00:48 | Cat Scan Report ---
CT head without contrast HISTORY: h/o lung ca, eval for mets. TECHNIQUE: Axial imaging performed from the skull apex through the skull base without the use of con trast. All CT scans at this location are performed using CT dose reduction for ALARA by means of aut omated exposure control. COMPARISON: CT head from 07/10/2011 FINDINGS: Parenchyma: There are a few scattered rounded nodular densities in the brain, some of which show inc reased internal attenuation/calcification in the anterior aspect of the right frontal lobe, left basa l ganglia, left temporoparietal region measuring 5 mm on image 15, and in the left cerebellum there a re 2 separate areas on image 11 and image 10. Otherwise old infarcts are seen in the right posterior parietal region and right basal ganglia. Ventricles: There is mild diffuse brain atrophy with commensurate ventricular enlargement which is l ikely age appropriate. Soft tissues: Soft tissues including the orbits appear normal. Bones: No acute osseous abnormality. Sinuses: Sinuses and mastoid air cells are clear. IMPRESSION: Multiple scattered slightly hyperintense foci in the brain worrisome for metastases. None mergent MRI brain with contrast would be an overall better tool for further evaluation as needed. Signer Name: Gerardo Juares MD Signed: 09/24/2019 12:44 AM Workstation Name: [id number]
[2019-09-24] MEDS ORDERED: CLOPIDOGREL 75 MG TAB PO ONE (02:13)
[2019-09-24] MEDS ORDERED: NON-FORMULARY EACH (Ferric Citrate (Nf) 210 MG) PO SCH (07:30)
[2019-09-24] MEDS: INSULIN LISPRO 100 UNIT/ML SUB-Q SCH ×4 (08:30→22:08)
[2019-09-24 09:15] LABS: Hematocrit 40.2 % (30.3-42.9); Hemoglobin 13.2 gm/dl (10.1-14.3); Mean Corpuscular HGB Conc 33 % (30-34); Mean Corpuscular Volume 95 fl (79-97); Platelet Count 192 K/mm3 (140-440); Red Blood Count 4.26 M/mm3 (3.65-5.03); Red Cell Distribution Width 18.5 % (13.2-15.2)
[2019-09-24 09:44] LABS: Creatine Kinase MB 96.9 ng/mL (0.0-4.0)
[2019-09-24 09:48] LABS: Calcium 9.6 mg/dL (8.4-10.2)
--- NOTE | 2019-09-24 09:59 | Consultation ---
History of Present Illness Consult date: 09/24/19 Consult reason: chest pain History of present illness: 69 year old -German female who has a history of coronary artery disease end-stage renal disease diabetes mellitus and hypertension presenting with left precordial chest pain and left arm pain which recorded during dialysis. Dialysis had to be stopped and patient was transferred to the hospital and admitted for further evaluation. Patient sees Dr. Mota at [facility] and he is supposed PCI with coronary stent implants Past History Past Medical History: CAD, COPD, diabetes, ESRD, hypertension, hyperlipidemia, other (Lung cancer) Past Surgical History: CABG, PTCA Social history: no significant social history Medications and Allergies Allergies Allergy/AdvReac Type Severity Reaction Status Date / Time No Known Allergies Allergy Verified 09/13/19 17:29 Home Medications Medication Instructions Recorded Confirmed Last Taken Type Ferric Citrate (Nf) [Auryxia] 210 mg PO AC 09/14/19 09/24/19 Unknown History ALBUTEROL NEB's [Proventil 0.083% 2.5 mg IH Q4HRT PRN nebu 09/16/19 09/24/19 Unknown Rx NEBS] Aspirin [Aspirin BABY CHEW TAB] 81 mg PO QDAY tab.chew 09/16/19 09/24/19 Unknown Rx AtorvaSTATin [Lipitor] 40 mg PO QHS tablet 09/16/19 09/24/19 Unknown Rx Clopidogrel [Plavix] 75 mg PO QDAY tablet 09/16/19 09/24/19 Unknown Rx Doxazosin [Cardura] 2 mg PO QDAY tablet 09/16/19 09/24/19 Unknown Rx Furosemide [Lasix TAB] 40 mg PO 0600,1800 tablet 09/16/19 09/24/19 Unknown Rx HYDROcodone/APAP 5-325 [[place] 1 each PO Q4H PRN #12 tablet 09/16/19 09/24/19 Unknown Rx 5-325 mg TAB] ISOSORBIDE MONOnitrate [Imdur ER] 120 mg PO QDAY tablet 09/16/19 09/24/19 Unknown Rx NIFEdipine XL [Procardia Xl] 60 mg PO Q12HR tablet 09/16/19 09/24/19 Unknown Rx Pantoprazole [Protonix TAB] 40 mg PO BID #60 09/16/19 09/24/19 Unknown Rx Ranolazine ER [Ranexa ER] 500 mg PO BID #60 tablet 09/16/19 09/24/19 Unknown Rx carvediloL [Coreg] 12.5 mg PO BID tablet 09/16/19 09/24/19 Unknown Rx cloNIDine [Catapres] 0.2 mg PO BID #60 09/16/19 09/24/19 Unknown Rx hydrALAZINE [Apresoline TAB] 100 mg PO Q8H tab 09/16/19 09/24/19 Unknown Rx Active Meds: Active Medications Acetaminophen (Tylenol) 650 mg PO Q4H PRN PRN Reason: Pain MILD(1-3)/Fever >100.5/HALL Aspirin (Baby Aspirin) 81 mg PO QDAY [facility] Atorvastatin Calcium (Lipitor) 40 mg PO QHS [facility] Clopidogrel Bisulfate (Plavix) 75 mg PO QDAY [facility] Dextrose (D50w (25gm) Syringe) 50 ml IV Q30MIN PRN; Protocol PRN Reason: Hypoglycemia Insulin Human Lispro (Humalog) 0 unit SUB-Q ACHS [facility]; Protocol Miscellaneous Medication (Ferric Citrate (Nf)) 210 mg PO AC [facility] Ondansetron HCl (Zofran) 4 mg IV Q8H PRN PRN Reason: Nausea And Vomiting Oxycodone/Acetaminophen (Percocet 5/325) 1 tab PO Q4H PRN PRN Reason: Pain, Moderate (4-6) Pantoprazole Sodium (Protonix) 40 mg PO BID [facility] Ranolazine (Ranexa Er) 500 mg PO BID [facility] Sodium Chloride (Sodium Chloride Flush Syringe 10 Ml) 10 ml IV BID [facility] Sodium Chloride (Sodium Chloride Flush Syringe 10 Ml) 10 ml IV PRN PRN PRN Reason: LINE FLUSH Review of Systems Constitutional: weight loss, anorexia, fatigue, weakness, malaise Ears, nose, mouth and throat: no ear pain, no ear discharge, no tinnitis, no nose pain, no epistaxis, no dysphagia Cardiovascular: chest pain, dyspnea on exertion, no orthopnea, no palpitations, no edema, no lightheadedness, no shortness of breath Respiratory: shortness of breath, dyspnea on exertion, no cough, no cough with sputum Gastrointestinal: abdominal pain, no nausea, no vomiting, no diarrhea, no melena, no hematochezia Genitourinary Female: no dyspareunia, no dysmenorrhea, no pelvic pain, no flank pain, no dysuria Rectal: no pain, no incontinence Musculoskeletal: no neck stiffness, no neck pain, no shooting arm pain, no leg numbness/tingling, no hot joints Integumentary: no deferred, no rash, no pruritis, no redness Neurological: no head injury, no transient paralysis, no paralysis, no weakness, no parathesias, no numbness Psychiatric: no anxiety, no memory loss, no change in sleep habits, no sleep disturbances Endocrine: no cold intolerance, no heat intolerance, no polyphagia, no excessive thirst, no polydipsia, no polyuria, no nocturia Hematologic/Lymphatic: no easy bruising, no easy bleeding Allergic/Immunologic: no urticaria, no allergic rhinitis, no wheezing Physical Examination Vital Signs Pulse Resp Pulse Ox 144 H 15 99 09/23/19 16:56 09/23/19 16:56 09/23/19 16:56 General appearance: no acute distress, well-nourished HEENT: Positive: PERRL, Mucus Membranes Moist Neck: Positive: neck supple. Negative: JVD/HJR Cardiac: Positive: Regular Rate, S1/S2, S4, PMI, Dilated, Laterally Displaced Lungs: Positive: clear to auscultation, No Wheeze, Rales, Rhonchi Neuro: Positive: Grossly Intact, No Lateralizing Findings Abdomen: Positive: Unremarkable, Active Bowel Sounds Extremities: Present: edema Results 09/24/19 08:43 09/24/19 08:43 Cardiac Enzymes 09/23/19 09/24/19 Range/Units 23:13 08:43 CK-MB (CK-2) 80.3 H 96.9 H (0.0-4.0) ng/mL Coagulation 09/23/19 Range/Units 16:29 PT 13.3 (12.2-14.9) Sec. INR 1.00 (0.87-1.13) APTT 28.7 (24.2-36.6) Sec. Lipids 09/23/19 Range/Units 16:29 Triglycerides 190 H (2-149) mg/dL Cholesterol 171 (50-199) mg/dL HDL Cholesterol 62 H (40-59) mg/dL Cholesterol/HDL Ratio 2.75 % CBC 09/23/19 09/24/19 Range/Units 16:29 08:43 WBC 3.8 L 4.0 L (4.5-11.0) K/mm3 RBC 4.06 4.26 (3.65-5.03) M/mm3 Hgb 12.7 13.2 (10.1-14.3) gm/dl Hct 36.8 40.2 (30.3-42.9) % Plt Count 189 192 (140-440) K/mm3 Lymph # 0.8 L (1.2-5.4) K/mm3 [place] # 0.3 (0.0-0.8) K/mm3 Eos # 0.0 (0.0-0.4) K/mm3 Baso # 0.0 (0.0-0.1) K/mm3 Comprehensive Metabolic Panel 09/23/19 09/23/19 09/24/19 Range/Units 16:29 17:55 08:43 Sodium 135 L 139 (137-145) mmol/L Potassium 3.7 4.0 (3.6-5.0) mmol/L Chloride 94.4 L 94.8 L (98-107) mmol/L Carbon Dioxide 19 L 21 L (22-30) mmol/L BUN 25 H 32 H (7-17) mg/dL Creatinine 3.8 H 5.0 H (0.7-1.2) mg/dL Glucose 67 243 H 112 H (65-100) mg/dL Calcium 9.5 9.6 (8.4-10.2) mg/dL - EKG Interpretation EKG: sinus rhythm EKG interpretations - Telemetry EKG Rhythm: Sinus Bradycardia - EKG Sinus rhythms and dysrhythmias: sinus rhythm AV and intraventricular conduction: intraventricular conducti Repolarization changes or abnormalities: nonspecific abnormality, ST segment, and/or T wave Assessment and Plan 1. Chest pain rule out ischemic coronary artery disease 2. Coronary artery disease status post coronary 3. Ischemic cardiomyopathy 4. Essential hypertension. 5. Peripheral vascular disease with abdominal aortic aneurysm 6. Type 2 diabetes mellitus 7. History of stage IV lung cancer. EKG sinus rhythm with normal electrical axis and IVCD with nonspecific ST-T changes. Plan. The patient is currently chest pain-free will obtain further cardiac isoenzymes. Patient to be scheduled for a Lexiscan MPI will review previous echocardiogram and [place] [facility] [place]
[2019-09-24] MEDS ORDERED: ENOXAPARIN 30 MG/0.3 ML INJ SUB-Q SCH (10:00)
[2019-09-24 10:03] LABS: Anisocytosis Few; Basophils % (Manual) 0 % (0.0-1.8); Ovalocytes Rare; Platelet Estimate Consistent w Auto; Poikilocytosis Few; Total Cells Counted 100
--- NOTE | 2019-09-24 10:37 | Consultation ---
History of Present Illness - Reason for Consult Consult date: 09/24/19 end stage renal disease, accelerated hypertension, glomerulonephritis Requesting physician: GRISELDA BROOKS - History of Present Illness History of present illness: 69-year-old male with a history of hypertension, diabetes, CHF, coronary artery disease, CVA, end-stage renal disease on dialysis, AAA, metastatic lung cancer comes emergency room with complaints of chest pain. It is in the left chest which he describes as a pressure, intermittent every 15 to 20 minutes, intensity 6/10, no radiation, associated with left arm numbness and pain, cannot identify exacerbating factor. Admits to shortness of breath, nausea, no diaphoresis or palpitation. Patient was admitted at [facility] 2 weeks ago for chest pain, she was just discharged from the hospital on 16 September for chest pain. Cardiology recommended medical management, attempt at cardiac cath in 2016 moises led due to the gigantic ascending aortic aneurysm containing large ulcerated thrombus. Patient has been admitted for non-STEMI Status post hemodialysis today, she arrived in the emergency room hypotensive, she was given IV fluid, cefepime Review of systems Constitutional: no weight loss, fever, chills Ears, eyes, nose, mouth and throat: no nasal congestion, no nasal discharge, no sinus pressure, no vision change, no red eye. Neck: No neck pain or rigidity. Cardiovascular: no palpitations Respiratory: No cough, +shortness of breath Gastrointestinal: no abdominal pain hematochezia Genitourinary : no frequency , no hematuria Musculoskeletal: no joint swelling or muscle ache Integumentary: no rash, no pruritis Neurological: no parathesias, no numbness, no focal weakness Endocrine: no cold or heat intolerance, no polyuria or polydipsia Hematologic/Lymphatic: no easy bruising, no easy bleeding, no gland swelling Allergic/Immunologic: no urticaria, no angioedema. PAST MEDICAL HISTORY: CHF, coronary artery disease, hypertension, diabetes, end- stage renal disease, AAA, metastatic lung cancer PAST SURGICAL HISTORY: AV fistula, CABG, hysterectomy SOCIAL HISTORY: No alcohol, no drugs, smokes 5 cigarettes a day FAMILY HISTORY: Hypertension Past History Past Medical History: CAD, COPD, diabetes, ESRD, hypertension, hyperlipidemia, other (Lung cancer) Past Surgical History: CABG, PTCA Social history: no significant social history Medications and Allergies Allergies Allergy/AdvReac Type Severity Reaction Status Date / Time No Known Allergies Allergy Verified 09/13/19 17:29 Home Medications Medication Instructions Recorded Confirmed Last Taken Type Ferric Citrate (Nf) [Auryxia] 210 mg PO AC 09/14/19 09/24/19 Unknown History ALBUTEROL NEB's [Proventil 0.083% 2.5 mg IH Q4HRT PRN nebu 09/16/19 09/24/19 Unknown Rx NEBS] Aspirin [Aspirin BABY CHEW TAB] 81 mg PO QDAY tab.chew 09/16/19 09/24/19 Unknown Rx AtorvaSTATin [Lipitor] 40 mg PO QHS tablet 09/16/19 09/24/19 Unknown Rx Clopidogrel [Plavix] 75 mg PO QDAY tablet 09/16/19 09/24/19 Unknown Rx Doxazosin [Cardura] 2 mg PO QDAY tablet 09/16/19 09/24/19 Unknown Rx Furosemide [Lasix TAB] 40 mg PO 0600,1800 tablet 09/16/19 09/24/19 Unknown Rx HYDROcodone/APAP 5-325 [[place] 1 each PO Q4H PRN #12 tablet 09/16/19 09/24/19 Unknown Rx 5-325 mg TAB] ISOSORBIDE MONOnitrate [Imdur ER] 120 mg PO QDAY tablet 09/16/19 09/24/19 Unknown Rx NIFEdipine XL [Procardia Xl] 60 mg PO Q12HR tablet 09/16/19 09/24/19 Unknown Rx Pantoprazole [Protonix TAB] 40 mg PO BID #60 09/16/19 09/24/19 Unknown Rx Ranolazine ER [Ranexa ER] 500 mg PO BID #60 tablet 09/16/19 09/24/19 Unknown Rx carvediloL [Coreg] 12.5 mg PO BID tablet 09/16/19 09/24/19 Unknown Rx cloNIDine [Catapres] 0.2 mg PO BID #60 09/16/19 09/24/19 Unknown Rx hydrALAZINE [Apresoline TAB] 100 mg PO Q8H tab 09/16/19 09/24/19 Unknown Rx Active Meds: Active Medications Acetaminophen (Tylenol) 650 mg PO Q4H PRN PRN Reason: Pain MILD(1-3)/Fever >100.5/HALL Aspirin (Baby Aspirin) 81 mg PO QDAY [facility] Atorvastatin Calcium (Lipitor) 40 mg PO QHS [facility] Clopidogrel Bisulfate (Plavix) 75 mg PO QDAY [facility] Dextrose (D50w (25gm) Syringe) 50 ml IV Q30MIN PRN; Protocol PRN Reason: Hypoglycemia Insulin Human Lispro (Humalog) 0 unit SUB-Q ACHS [facility]; Protocol Metoprolol Tartrate (Metoprolol) 50 mg PO BID [facility] Miscellaneous Medication (Ferric Citrate (Nf)) 210 mg PO AC [facility] Nitroglycerin (Nitro-Bid 2%) 1 inch TP TIDNTG [facility]; Protocol Ondansetron HCl (Zofran) 4 mg IV Q8H PRN PRN Reason: Nausea And Vomiting Oxycodone/Acetaminophen (Percocet 5/325) 1 tab PO Q4H PRN PRN Reason: Pain, Moderate (4-6) Pantoprazole Sodium (Protonix) 40 mg PO BID [facility] Ranolazine (Ranexa Er) 500 mg PO BID [facility] Sodium Chloride (Sodium Chloride Flush Syringe 10 Ml) 10 ml IV BID [facility] Sodium Chloride (Sodium Chloride Flush Syringe 10 Ml) 10 ml IV PRN PRN PRN Reason: LINE FLUSH Exam - Vital Signs Vital signs: Vital Signs Pulse Resp Pulse Ox 144 H 15 99 09/23/19 16:56 09/23/19 16:56 09/23/19 16:56 - Physical Exam Narrative exam: Gen. appearance: Patient lying in bed, no apparent distress HEENT: Normocephalic, atraumatic, pupils equally round and reactive to light, eyes are , extraocular movement intact, and no sclericterus,. No JVD or thyromegaly or nodule,neck supple, no carotid bruit ,mucous membranes moist, no exudate or erythema Heart: S1, S2, regular rate and rhythm Lungs:Clear bilaterally, breathing comfortable Abdomen: Positive bowel sounds, non-tender, nondistended, no organomegaly Extremity:no edema cyanosis, clubbing Skin: no rash, dry, warm Neuro: Cranial nerves 2-12 intact, motor and sensory intact Results - Lab Results 09/24/19 08:43 09/24/19 08:43 Most recent lab results Calcium 9.6 mg/dL (8.4-10.2) 09/24/19 08:43 Assessment and Plan Assessment ESRD Non-STEMI/CAD CHF, stable hypotension Diabetes Metastatic lung cancer h/o AAA Plan: troponin noted, has NSTEMI plans for [facility] in AM noted will not be placed on hemodialysis until NSTEMI addressed follow up am lytes and strict i/os uf as tolerated with hd once cardiac status stabilized renal diet
[2019-09-24] MEDS: RANOLAZINE ER 500 MG TAB 12HR PO SCH ×2 (14:24→22:09)
[2019-09-24] MEDS: PANTOPRAZOLE 40 MG TAB PO SCH ×2 (14:24→22:09)
[2019-09-24] MEDS: CLOPIDOGREL 75 MG TAB PO SCH (14:24)
[2019-09-24] MEDS: ASPIRIN 81 MG TAB CHEW PO SCH (14:24)
[2019-09-24] MEDS: NITROGLYCERIN 2% OINT 1 GM TP SCH ×2 (14:33→18:23)
--- NOTE | 2019-09-24 18:09 | Progress Note ---
Assessment and Plan - Patient Problems (1) NSTEMI (non-ST elevated myocardial infarction) Current Visit: Yes Status: Acute Plan to address problem: will start Nitro-ointment and Beta-blockers and schedule for [facility] in the am of 09/25/2019 Refuses IV Heparin (2) CAD (coronary artery disease) Current Visit: Yes Status: Chronic Qualifiers: Coronary Disease-Associated Artery/Lesion type: unspecified vessel or lesion type [place] vs. transplanted heart: [place] heart Associated angina: with unstable angina Qualified Code(s): I25.110 - Atherosclerotic heart disease of [place] coronary artery with unstable angina pectoris Plan to address problem: Cont Plavix (3) ESRD needing dialysis Current Visit: No Status: Chronic Plan to address problem: COnt HD as per schedule (4) Hypotension Current Visit: Yes Status: Acute Qualifiers: Hypotension type: unspecified hypotension type Qualified Code(s): I95.9 - Hypotension, unspecified Plan to address problem: BP meds on Hold.Add BP meds when stable and BP going higher than 150 systolic. (5) T2DM (type 2 diabetes mellitus) Current Visit: Yes Status: Chronic Qualifiers: Diabetes mellitus custodial insulin use: unspecified intermediate frame tender insulin use status Plan to address problem: COnt hypoglycemics and coverage (6) Hyperlipidemia Current Visit: No Status: Acute (7) Lung cancer Current Visit: No Status: Chronic Qualifiers: Laterality: left Lung location: unspecified part of lung Qualified Code(s): C34.92 - Malignant neoplasm of unspecified part of left bronchus or lung Plan to address problem: COnt outpatient treatment (8) Advance care planning Current Visit: No Status: Acute Plan to address problem: Patient is full code (9) Discharge planning issues Current Visit: Yes Status: Acute Plan to address problem: Inpatient status b/c of NSTEMI For [facility] in am (10) DVT prophylaxis Current Visit: No Status: Acute Plan to address problem: O Heparin SQ and GI prophylaxis Subjective Date of service: 09/24/19 Principal diagnosis: NSTEMI Interval history: 69 year old -[place] female who has a history of coronary artery disease, end-stage renal disease, diabetes mellitus and hypertension presenting with left precordial chest pain and left arm pain which recorded during dialysis. Dialysis had to be stopped and patient was transferred to the hospital and admitted for further evaluation. Patient sees Dr. Wilber Mota at [facility] and he is supposed to perform PCI with coronary stent implants. Patienrt admitted for Chest pain and NSTEMI Patient with chest pains and NSTEMI No symptoms at this time. Patient refusing IV Heparin Objective - Constitutional Vitals: Vital Signs - 12hr 09/24/19 09/24/19 09/24/19 09:04 09:05 10:18 Temperature 97.9 F Pulse Rate 61 Pulse Rate [ Apical] Respiratory 16 Rate Respiratory Rate [Denies] Blood Pressure 127/67 Blood Pressure 127/61 [Right] O2 Sat by Pulse 96 98 Oximetry 09/24/19 09/24/19 09/24/19 12:00 14:26 14:33 Temperature Pulse Rate 57 L 74 Pulse Rate [ 57 L Apical] Respiratory Rate Respiratory 16 Rate [Denies] Blood Pressure Blood Pressure [Right] O2 Sat by Pulse 96 Oximetry 09/24/19 16:30 Temperature 98.5 F Pulse Rate 55 L Pulse Rate [ Apical] Respiratory 18 Rate Respiratory Rate [Denies] Blood Pressure 122/57 Blood Pressure [Right] O2 Sat by Pulse 95 Oximetry General appearance: Present: no acute distress, well-nourished - EENT Eyes: PERRL, EOM intact ENT: hearing intact, clear oral mucosa Ears: bilateral: normal - Neck Neck: supple, normal ROM - Respiratory Respiratory effort: normal Respiratory: bilateral: CTA - Breasts Breasts: normal - Cardiovascular Heart rate: 60 Rhythm: regular Heart Sounds: Present: S1 & S2. Absent: gallop, rub Extremities: no ischemia, pulses intact, No edema, normal color, Full ROM - Gastrointestinal General gastrointestinal: Present: soft, non-tender, non-distended, normal bowel sounds - Genitourinary Female genitourinary: normal - Integumentary Integumentary: clear, warm, dry - Musculoskeletal Musculoskeletal: 1, strength equal bilaterally - Neurologic Neurologic: moves all extremities - Psychiatric Psychiatric: memory intact, appropriate mood/affect, intact judgment & insight - Labs CBC & Chem 7: 09/24/19 08:43 09/24/19 08:43 Labs: Abnormal lab results 09/23/19 09/23/19 09/23/19 Range/Units 17:55 17:55 18:26 WBC (4.5-11.0) K/mm3 RDW (13.2-15.2) % Seg Neuts % (Manual) (40.0-70.0) % Lymphocytes % (Manual) (13.4-35.0) % Monocytes % (Manual) (0.0-7.3) % Lymphocytes # (Manual) (1.2-5.4) K/mm3 Chloride (98-107) mmol/L Carbon Dioxide (22-30) mmol/L BUN (7-17) mg/dL Creatinine (0.7-1.2) mg/dL Glucose 243 H (65-100) mg/dL POC Glucose 69 L (70-105) Lactic Acid 2.30 H* (0.7-2.0) mmol/L Total Creatine Kinase (30-135) units/L CK-MB (CK-2) (0.0-4.0) ng/mL CK-MB (CK-2) Rel Index (0-4) Troponin T (0.00-0.029) ng/mL 09/23/19 09/23/19 09/23/19 Range/Units 19:28 20:33 20:33 WBC (4.5-11.0) K/mm3 RDW (13.2-15.2) % Seg Neuts % (Manual) (40.0-70.0) % Lymphocytes % (Manual) (13.4-35.0) % Monocytes % (Manual) (0.0-7.3) % Lymphocytes # (Manual) (1.2-5.4) K/mm3 Chloride (98-107) mmol/L Carbon Dioxide (22-30) mmol/L BUN (7-17) mg/dL Creatinine (0.7-1.2) mg/dL Glucose (65-100) mg/dL POC Glucose 142 H (70-105) Lactic Acid 2.80 H* (0.7-2.0) mmol/L Total Creatine Kinase (30-135) units/L CK-MB (CK-2) (0.0-4.0) ng/mL CK-MB (CK-2) Rel Index (0-4) Troponin T 0.813 H* D (0.00-0.029) ng/mL 09/23/19 09/24/19 09/24/19 Range/Units 23:13 08:43 08:43 WBC 4.0 L (4.5-11.0) K/mm3 RDW 18.5 H (13.2-15.2) % Seg Neuts % (Manual) 77.0 H (40.0-70.0) % Lymphocytes % (Manual) 12.0 L (13.4-35.0) % Monocytes % (Manual) 10.0 H (0.0-7.3) % Lymphocytes # (Manual) 0.5 L (1.2-5.4) K/mm3 Chloride 94.8 L (98-107) mmol/L Carbon Dioxide 21 L (22-30) mmol/L BUN 32 H (7-17) mg/dL Creatinine 5.0 H (0.7-1.2) mg/dL Glucose 112 H (65-100) mg/dL POC Glucose (70-105) Lactic Acid (0.7-2.0) mmol/L Total Creatine Kinase 601 H 639 H (30-135) units/L CK-MB (CK-2) 80.3 H 96.9 H (0.0-4.0) ng/mL CK-MB (CK-2) Rel Index 13.3 H 15.1 H (0-4) Troponin T 2.420 H* D 4.900 H* D (0.00-0.029) ng/mL - Imaging and cardiology EKG: report reviewed ([facility])
[2019-09-24] MEDS ORDERED: CEFEPIME/NS 2 GM/100 ML 2 GM/100 ML BAG IV SCH (22:00)
[2019-09-24] MEDS: METOPROLOL TARTRATE 50 MG TAB PO SCH (22:09)
[2019-09-25] MEDS: NITROGLYCERIN 2% OINT 1 GM TP SCH (06:15)
[2019-09-25] MEDS: INSULIN LISPRO 100 UNIT/ML SUB-Q SCH ×4 (08:00→23:26)
[2019-09-25] MEDS: RANOLAZINE ER 500 MG TAB 12HR PO SCH ×2 (10:28→22:49)
[2019-09-25] MEDS: PANTOPRAZOLE 40 MG TAB PO SCH ×2 (10:28→22:49)
[2019-09-25] MEDS: CLOPIDOGREL 75 MG TAB PO SCH (10:29)
[2019-09-25] MEDS: ASPIRIN 81 MG TAB CHEW PO SCH (10:29)
[2019-09-25] MEDS: METOPROLOL TARTRATE 50 MG TAB PO SCH ×2 (10:31→22:49)
--- NOTE | 2019-09-25 11:11 | Progress Note ---
Assessment and Plan Assessment and plan: 69 year old -[place] female who has a history of coronary artery disease, end-stage renal disease, diabetes mellitus and hypertension presenting with left precordial chest pain and left arm pain which recorded during dialysis. Dialysis had to be stopped and patient was transferred to the [facility] and admitted for further evaluation. Patient sees Dr. Wilber Mota at [facility] and he is supposed to perform PCI with coronary stent implants. Patienrt admitted for Chest pain and NSTEMI Patient with chest pains and NSTEMI No symptoms at this time. Patient refusing IV Heparin Cardiac cath cancelled by Cardiology team, Medical management for this complex patient with Lung CA due to severe medical co-morbidities, advanced lung cancer and prior attempt at coronary angiography failed secondary to anatomy. Medical therapy for coronary artery disease. Attempt at cardiac cath in 2015 failed due to the gigantic ascending aortic aneurysm containing large ulcerated thrombus. Per cardiology NSTEMI: Medical management, Plavix, asa, BB Chronic dissecting ascending aortic aneurysm -deemed to be in operable by cardiothoracic surgery Complex multivessel CAD with 3 vessel CABG at [place] in 2007 End-stage renal disease on hemodialysis. Left upper lobe lung cancer with lymph node and hepatic metastasis. -Obtain pULMONARY CONSULT, [facility] Patient has not started treatment for her cancer. Chronic anemia and thrombocytopenia Hypotension- Leading to complication in management T2DM (type 2 diabetes mellitus): COnt hypoglycemics and coverage Hyperlipidemia dvt/gi PROPHY History Interval history: Patient seen and examined, some chest pain persist 4/10 in intensity. No nausea, mild shortness of breath still on oxygen Hospitalist Physical - Physical exam Narrative exam: General appearance: Present: mild respiratory distress, well-nourished - EENT Eyes: PERRL, EOM intact ENT: hearing intact, clear oral mucosa Ears: bilateral: normal - Neck Neck: supple, normal ROM - Respiratory Respiratory effort: normal Respiratory: bilateral: CTA - Breasts Breasts: normal - Cardiovascular Heart rate: 60 Rhythm: regular Heart Sounds: Present: S1 & S2. Absent: gallop, rub Extremities: no ischemia, pulses intact, No edema, normal color, Full ROM - Gastrointestinal General gastrointestinal: Present: soft, non-tender, non-distended, normal bowel sounds - Genitourinary Female genitourinary: normal - Integumentary Integumentary: clear, warm, dry - Musculoskeletal Musculoskeletal: 1, strength equal bilaterally - Neurologic Neurologic: moves all extremities - Psychiatric Psychiatric: memory intact, appropriate mood/affect, intact judgment & insight - Constitutional Vitals: Temp Pulse Resp BP Pulse Ox 98.3 F 57 L 16 138/64 99 09/25/19 07:15 09/25/19 10:31 09/25/19 07:15 09/25/19 10:31 09/25/19 07:15 General appearance: Present: no acute distress, well-nourished ABRAHAM score - Abraham Score Age > 65: (1) Yes Aspirin use within the Past 7 Days: (0) No 3 or more CAD Risk Factors: (1) Yes 2 or more Angina events in past 24 hrs: (0) No Known CAD with more than 50% Stenosis: (0) No Elevated Cardiac Markers: (1) Yes ST Deviation Greater than 0.5mm: (0) No ABRAHAM Score: 3 Results - Labs CBC & Chem 7: 09/24/19 08:43 09/24/19 08:43 Labs: Laboratory Last Values WBC 4.0 K/mm3 (4.5-11.0) L 09/24/19 08:43 RBC 4.26 M/mm3 (3.65-5.03) 09/24/19 08:43 Hgb 13.2 gm/dl (10.1-14.3) 09/24/19 08:43 Hct 40.2 % (30.3-42.9) 09/24/19 08:43 MCV 95 fl (79-97) 09/24/19 08:43 MCH 31 pg (28-32) 09/24/19 08:43 MCHC 33 % (30-34) 09/24/19 08:43 RDW 18.5 % (13.2-15.2) H 09/24/19 08:43 Plt Count 192 K/mm3 (140-440) 09/24/19 08:43 Lymph % (Auto) 20.2 % (13.4-35.0) 09/23/19 16:29 [place] % (Auto) 7.1 % (0.0-7.3) 09/23/19 16:29 Eos % (Auto) 1.2 % (0.0-4.3) 09/23/19 16:29 Baso % (Auto) 0.8 % (0.0-1.8) 09/23/19 16: Lymph # 0.8 K/mm3 (1.2-5.4) L 09/23/19 16:29 [place] # 0.3 K/mm3 (0.0-0.8) 09/23/19 16:29 Eos # 0.0 K/mm3 (0.0-0.4) 09/23/19 16: Baso # 0.0 K/mm3 (0.0-0.1) 09/23/19 16: Add Manual Diff Complete 09/24/19 08:43 Total Counted 100 09/24/19 08:43 Seg Neutrophils % 70.7 % (40.0-70.0) H 09/23/19 16:29 Seg Neuts % (Manual) 77.0 % (40.0-70.0) H 09/24/19 08:43 Band Neutrophils % 0 % 09/24/19 08:43 Lymphocytes % (Manual) 12.0 % (13.4-35.0) L 09/24/19 08:43 Reactive Lymphs % (Man) 0 % 09/24/19 08:43 Monocytes % (Manual) 10.0 % (0.0-7.3) H 09/24/19 08:43 Eosinophils % (Manual) 1.0 % (0.0-4.3) 09/24/19 08:43 Basophils % (Manual) 0 % (0.0-1.8) 09/24/19 08:43 Metamyelocytes % 0 % 09/24/19 08:43 Myelocytes % 0 % 09/24/19 08:43 Promyelocytes % 0 % 09/24/19 08:43 Blast Cells % 0 % 09/24/19 08:43 Nucleated RBC % Not Reportable 09/24/19 08:43 Seg Neutrophils # 2.7 K/mm3 (1.8-7.7) 09/23/19 16:29 Seg Neutrophils # Man 3.1 K/mm3 (1.8-7.7) 09/24/19 08:43 Band Neutrophils # 0.0 K/mm3 09/24/19 08:43 Lymphocytes # (Manual) 0.5 K/mm3 (1.2-5.4) L 09/24/19 08:43 Abs React Lymphs (Man) 0.0 K/mm3 09/24/19 08:43 Monocytes # (Manual) 0.4 K/mm3 (0.0-0.8) 09/24/19 08:43 Eosinophils # (Manual) 0.0 K/mm3 (0.0-0.4) 09/24/19 08:43 Basophils # (Manual) 0.0 K/mm3 (0.0-0.1) 09/24/19 08:43 Metamyelocytes # 0.0 K/mm3 09/24/19 08:43 Myelocytes # 0.0 K/mm3 09/24/19 08:43 Promyelocytes # 0.0 K/mm3 09/24/19 08:43 Blast Cells # 0.0 K/mm3 09/24/19 08:43 WBC Morphology Not Reportable 09/24/19 08:43 Hypersegmented Neuts Not Reportable 09/24/19 08:43 Hyposegmented Neuts Not Reportable 09/24/19 08:43 Hypogranular Neuts Not Reportable 09/24/19 08:43 Smudge Cells Not Reportable 09/24/19 08:43 Toxic Granulation Not Reportable 09/24/19 08:43 Toxic Vacuolation Not Reportable 09/24/19 08:43 Dohle Bodies Not Reportable 09/24/19 08:43 Pelger-Huet Anomaly Not Reportable 09/24/19 08:43 Roshni Rods Not Reportable 09/24/19 08:43 Platelet Estimate Consistent w auto 09/24/19 08:43 Clumped Platelets Not Reportable 09/24/19 08:43 Plt Clumps, EDTA Not Reportable 09/24/19 08:43 Large Platelets Not Reportable 09/24/19 08:43 Giant Platelets Not Reportable 09/24/19 08:43 Platelet Satelliting Not Reportable 09/24/19 08:43 Plt Morphology Comment Not Reportable 09/24/19 08:43 RBC Morphology Not Reportable 09/24/19 08:43 Dimorphic RBCs Not Reportable 09/24/19 08:43 Polychromasia Not Reportable 09/24/19 08:43 Hypochromasia Not Reportable 09/24/19 08:43 Poikilocytosis Few 09/24/19 08:43 Anisocytosis Few 09/24/19 08:43 Microcytosis Not Reportable 09/24/19 08:43 Macrocytosis Not Reportable 09/24/19 08:43 Spherocytes Not Reportable 09/24/19 08:43 Pappenheimer Bodies Not Reportable 09/24/19 08:43 Sickle Cells Not Reportable 09/24/19 08:43 Target Cells Not Reportable 09/24/19 08:43 Tear Drop Cells Not Reportable 09/24/19 08:43 Ovalocytes Rare 09/24/19 08:43 Helmet Cells Not Reportable 09/24/19 08:43 [place] Bodies Not Reportable 09/24/19 08:43 [place] Rings Not Reportable 09/24/19 08:43 [place] Cells Not Reportable 09/24/19 08:43 Bite Cells Not Reportable 09/24/19 08:43 Crenated Cell Not Reportable 09/24/19 08:43 Elliptocytes Not Reportable 09/24/19 08:43 Acanthocytes (Spur) Not Reportable 09/24/19 08:43 Rouleaux Not Reportable 09/24/19 08:43 Hemoglobin C Crystals Not Reportable 09/24/19 08:43 Schistocytes Not Reportable 09/24/19 08:43 Malaria parasites Not Reportable 09/24/19 08:43 Mahesh Bodies Not Reportable 09/24/19 08:43 Hem Pathologist Commnt No 09/24/19 08:43 PT 13.3 Sec. (12.2-14.9) 09/23/19 16:29 INR 1.00 (0.87-1.13) 09/23/19 16:29 APTT 28.7 Sec. (24.2-36.6) 09/23/19 16:29 D-Dimer 1554.13 ng/mlDDU (0-234) H 09/23/19 16:29 Sodium 139 mmol/L (137-145) 09/24/19 08:43 Potassium 4.0 mmol/L (3.6-5.0) 09/24/19 08:43 Chloride 94.8 mmol/L (98-107) L 09/24/19 08:43 Carbon Dioxide 21 mmol/L (22-30) L 09/24/19 08:43 Anion Gap 27 mmol/L 09/24/19 08:43 BUN 32 mg/dL (7-17) H 09/24/19 08:43 Creatinine 5.0 mg/dL (0.7-1.2) H 09/24/19 08:43 Estimated GFR 10 ml/min 09/24/19 08:43 BUN/Creatinine Ratio 6 % 09/24/19 08:43 Glucose 112 mg/dL (65-100) H 09/24/19 08:43 POC Glucose 73 (70-105) 09/25/19 06:49 Lactic Acid 1.90 mmol/L (0.7-2.0) 09/23/19 23:13 Calcium 9.6 mg/dL (8.4-10.2) 09/24/19 08:43 Total Creatine Kinase 639 units/L (30-135) H 09/24/19 08:43 CK-MB (CK-2) 96.9 ng/mL (0.0-4.0) H 09/24/19 08:43 CK-MB (CK-2) Rel Index 15.1 (0-4) H 09/24/19 08:43 Troponin T 4.900 ng/mL (0.00-0.029) H* D 09/24/19 08:43 Triglycerides 190 mg/dL (2-149) H 09/23/19 16:29 Cholesterol 171 mg/dL (50-199) 09/23/19 16:29 LDL Cholesterol Direct 81 mg/dL (50-130) 09/23/19 16:29 HDL Cholesterol 62 mg/dL (40-59) H 09/23/19 16:29 Cholesterol/HDL Ratio 2.75 % 09/23/19 16:29 Active Medications - Current Medications Current Medications: Generic Name Dose Route Start Last Admin Trade Name Freq PRN Reason Stop Dose Admin Acetaminophen 650 mg 09/23/19 22:22 Tylenol PO Q4H PRN Pain MILD(1-3)/Fever >100.5/HALL Aspirin 81 mg 09/24/19 10:00 09/25/19 10:29 Baby Aspirin PO 81 mg QDAY CHUYITA Administration Atorvastatin Calcium 40 mg 09/24/19 22:00 09/24/19 22:09 Lipitor PO 40 mg QHS CHUYITA Administration Clopidogrel Bisulfate 75 mg 09/24/19 10:00 09/25/19 10:29 Plavix PO 75 mg QDAY CHUYITA Administration Dextrose 50 ml 09/24/19 00:20 D50w (25gm) Syringe IV Q30MIN PRN Hypoglycemia Protocol Insulin Human Lispro 0 unit 09/24/19 07:30 09/25/19 08:00 Humalog SUB-Q Not Given ACHS [facility] Protocol Metoprolol Tartrate 50 mg 09/24/19 22:00 09/25/19 10:31 Metoprolol PO Not Given BID [facility] Miscellaneous Medication 210 mg 09/24/19 07:30 Ferric Citrate (Nf) PO AC [facility] Nitroglycerin 1 inch 09/24/19 12:00 09/25/19 06:15 Nitro-Bid 2% TP 1 inch TIDNTG [facility] Administration Protocol Ondansetron HCl 4 mg 09/23/19 22:22 Zofran IV Q8H PRN Nausea And Vomiting Oxycodone/Acetaminophen 1 tab 09/23/19 22:32 Percocet 5/325 PO Q4H PRN Pain, Moderate (4-6) Pantoprazole Sodium 40 mg 09/24/19 10:00 09/25/19 10:28 Protonix PO 40 mg BID CHUYITA Administration Ranolazine 500 mg 09/24/19 10:00 09/25/19 10:28 Ranexa Er PO 500 mg BID CHUYITA Administration Sodium Chloride 10 ml 09/24/19 10:00 09/25/19 10:32 Sodium Chloride Flush Syringe 10 Ml IV 10 ml BID CHUYITA Administration Sodium Chloride 10 ml 09/23/19 22:22 Sodium Chloride Flush Syringe 10 Ml IV PRN PRN LINE FLUSH
--- NOTE | 2019-09-25 12:04 | Progress Note ---
Assessment and Plan NSTEMI attempt at cardiac cath in 2016 failed due to the gigantic ascending aortic aneurysm containing large ulcerated thrombus. Hx of chronic dissecting ascending aortic aneurysm deemed to be in operable by cardiothoracic surgery Hx of complex multivessel CAD with 3 vessel CABG at [place] in 2007 End-stage renal disease on hemodialysis. Left upper lobe lung cancer with lymph node and hepatic metastasis. Patient has not started treatment for her cancer. Chronic anemia and thrombocytopenia Recommendations: We will obtain an echocardiogram for LVEF assessment. Patient is not a candidate for invasive cardiac management due to severe medical co-morbidities, advanced lung cancer and prior attempt at coronary angiography failed secondary to anatomy. Medical therapy for coronary artery disease. Subjective Date of service: 09/25/19 Principal diagnosis: NSTEMI Interval history: Patient is resting in bed comfortable. She reports her breathing is better. She denies chest pain. Objective Vital Signs Temp Pulse Pulse Resp BP Pulse Ox 09/25/19 10:31 57 L 138/64 09/25/19 07:15 98.3 F 54 L 16 138/61 99 09/25/19 06:15 51 L 130/57 09/25/19 06:00 51 L 09/25/19 05:42 98.0 F 51 L 18 130/57 100 09/25/19 00:00 59 L 09/24/19 23:41 97.8 F 55 L 18 120/52 96 09/24/19 22:09 61 144/66 09/24/19 22:00 59 L 09/24/19 19:49 98.2 F 61 20 144/66 98 09/24/19 18:23 61 09/24/19 16:30 98.5 F 55 L 18 122/57 95 09/24/19 14:33 74 09/24/19 14:26 57 L - Physical Examination General: No Apparent Distress HEENT: Positive: PERRL Neck: Positive: trachea midline Cardiac: Positive: Reg Rate and Rhythm Lungs: Positive: Decreased Breath Sounds Neuro: Positive: Grossly Intact Extremities: Present: edema - EKG Sinus rhythms and dysrhythmias: sinus rhythm AV and intraventricular conduction: intraventricular conducti Repolarization changes or abnormalities: nonspecific abnormality, ST segment, and/or T wave
--- NOTE | 2019-09-25 18:52 | Progress Note ---
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 (2) End stage renal disease Current Visit: No Status: Acute Plan to address problem: ESRD ON hemodialysis continue HD on TTS schedule. (3) Hypertension Current Visit: No Status: Chronic Plan to address problem: HTN: CONTROLLED. continue current medications. (4) Metabolic acidosis Current Visit: Yes Status: Acute Plan to address problem: Metabolic acidosis 2/2 renal failure. Subjective Principal diagnosis: NSTEMI Interval history: 69 year old with ESRD on hemodialysis TTS with left arm AVF and recent diagnosis of malignancy Patient seen today Will plan for dialysis tomorrow denies any shortness of breath ,no edema Objective - Vital Signs Vital signs: Vital Signs - 12hr 09/25/19 09/25/19 09/25/19 07:15 10:31 12:09 Temperature 98.3 F 98.1 F Pulse Rate 54 L 57 L 56 L Respiratory 16 16 Rate Blood Pressure 138/61 138/64 142/61 O2 Sat by Pulse 99 99 Oximetry 09/25/19 09/25/19 16:13 18:31 Temperature 97.8 F Pulse Rate Respiratory 20 Rate Blood Pressure 128/53 O2 Sat by Pulse 100 Oximetry - General Appearance General appearance: well-developed, well-nourished EENT: ATNC, PERRL Neck: no JVD Respiratory: Present: Clear to Ascultation Cardiology: regular, S1S2 Gastrointestinal: normal, normoactive bowel sounds Integumentary: no rash Neurologic: alert and oriented x3, CN 3-12 intact Psychiatric: mood/affect appropriate - Lab 09/24/19 08:43 09/24/19 08:43 Most recent lab results Calcium 9.6 mg/dL (8.4-10.2) 09/24/19 08:43 Medications & Allergies - Medications Allergies/Adverse Reactions: Allergies No Known Allergies Allergy (Verified 09/13/19 17:29) Home Medications: Home Medications Medication Instructions Recorded Confirmed Last Taken Type Ferric Citrate (Nf) [Auryxia] 210 mg PO AC 09/14/19 09/24/19 Unknown History ALBUTEROL NEB's [Proventil 0.083% 2.5 mg IH Q4HRT PRN nebu 09/16/19 09/24/19 Unknown Rx NEBS] Aspirin [Aspirin BABY CHEW TAB] 81 mg PO QDAY tab.chew 09/16/19 09/24/19 Unknown Rx AtorvaSTATin [Lipitor] 40 mg PO QHS tablet 09/16/19 09/24/19 Unknown Rx Clopidogrel [Plavix] 75 mg PO QDAY tablet 09/16/19 09/24/19 Unknown Rx Doxazosin [Cardura] 2 mg PO QDAY tablet 09/16/19 09/24/19 Unknown Rx Furosemide [Lasix TAB] 40 mg PO 0600,1800 tablet 09/16/19 09/24/19 Unknown Rx HYDROcodone/APAP 5-325 [Ridgely 1 each PO Q4H PRN #12 tablet 09/16/19 09/24/19 Unknown Rx 5-325 mg TAB] ISOSORBIDE MONOnitrate [Imdur ER] 120 mg PO QDAY tablet 09/16/19 09/24/19 Unknown Rx NIFEdipine XL [Procardia Xl] 60 mg PO Q12HR tablet 09/16/19 09/24/19 Unknown Rx Pantoprazole [Protonix TAB] 40 mg PO BID #60 09/16/19 09/24/19 Unknown Rx Ranolazine ER [Ranexa ER] 500 mg PO BID #60 tablet 09/16/19 09/24/19 Unknown Rx carvediloL [Coreg] 12.5 mg PO BID tablet 09/16/19 09/24/19 Unknown Rx cloNIDine [Catapres] 0.2 mg PO BID #60 09/16/19 09/24/19 Unknown Rx hydrALAZINE [Apresoline TAB] 100 mg PO Q8H tab 09/16/19 09/24/19 Unknown Rx Active Medications: Generic Name Dose Route Start Last Admin Trade Name Freq PRN Reason Stop Dose Admin Acetaminophen 650 mg 09/23/19 22:22 Tylenol PO Q4H PRN Pain MILD(1-3)/Fever >100.5/HALL Aspirin 81 mg 09/24/19 10:00 09/25/19 10:29 Baby Aspirin PO 81 mg QDAY CHUYITA Administration Atorvastatin Calcium 40 mg 09/24/19 22:00 09/24/19 22:09 Lipitor PO 40 mg QHS CHUYITA Administration Clopidogrel Bisulfate 75 mg 09/24/19 10:00 09/25/19 10:29 Plavix PO 75 mg QDAY CHUYITA Administration Dextrose 50 ml 09/24/19 00:20 09/25/19 12:31 D50w (25gm) Syringe IV 50 ml Q30MIN PRN Administration Hypoglycemia Protocol Insulin Human Lispro 0 unit 09/24/19 07:30 09/25/19 12:30 Humalog SUB-Q Not Given ACHS [facility] Protocol Metoprolol Tartrate 50 mg 09/24/19 22:00 09/25/19 10:31 Metoprolol PO Not Given BID [facility] Miscellaneous Medication 210 mg 09/24/19 07:30 Ferric Citrate (Nf) PO AC [facility] Nitroglycerin 0.4 mg 09/26/19 06:00 Nitro Dur TD QDAY@0600 [facility] Ondansetron HCl 4 mg 09/23/19 22:22 Zofran IV Q8H PRN Nausea And Vomiting Oxycodone/Acetaminophen 1 tab 09/23/19 22:32 Percocet 5/325 PO Q4H PRN Pain, Moderate (4-6) Pantoprazole Sodium 40 mg 09/24/19 10:00 09/25/19 10:28 Protonix PO 40 mg BID CHUYITA Administration Ranolazine 500 mg 09/24/19 10:00 09/25/19 10:28 Ranexa Er PO 500 mg BID CHUYITA Administration Sodium Chloride 10 ml 09/24/19 10:00 09/25/19 10:32 Sodium Chloride Flush Syringe 10 Ml IV 10 ml BID CHUYITA Administration Sodium Chloride 10 ml 09/23/19 22:22 Sodium Chloride Flush Syringe 10 Ml IV PRN PRN LINE FLUSH
[2019-09-26] MEDS: ONDANSETRON 4 MG/2 ML INJ IV PRN ×3 (01:36→18:56)
[2019-09-26] MEDS ORDERED: NITROGLYCERIN 0.4 MG PATCH 24HR TD SCH (06:00)
[2019-09-26] MEDS: INSULIN LISPRO 100 UNIT/ML SUB-Q SCH ×4 (09:07→22:19)
--- NOTE | 2019-09-26 09:34 | Progress Note ---
Assessment and Plan NSTEMI patient is not a candidate for invasive cardiac evaluation due to multiple severe medical co-morbidities. attempt at cardiac cath in 2016 failed due to the gigantic ascending aortic aneurysm containing large ulcerated thrombus. Transient episode of Afib this admission Ischemic Cardiomyopathy echo this admission reports 4 chamber dilated cardiomyopathy with a decreased LVEF 30-35%. Hx of greater than 6 cm chronic dissecting ascending aortic aneurysm deemed to be in operable by cardiothoracic surgery Hx of complex multivessel CAD with 3 vessel CABG at [place] in 2007 End-stage renal disease on hemodialysis. Left upper lobe lung cancer with lymph node and hepatic metastasis. Patient has not started treatment for her cancer. Chronic anemia and thrombocytopenia Recommendations: Dialysis for fluid management. Patient is not a candidate for invasive cardiac evaluation due to severe medical co-morbidities. Medical therapy for coronary artery disease and ischemic cardiomyopathy. Subjective Date of service: 09/26/19 Principal diagnosis: NSTEMI Interval history: Complains of generalized pain. Stable sinus rhythm on telemetry. Objective Vital Signs Temp Pulse Resp BP BP Pulse Ox 09/26/19 09:06 97.8 F 58 L 16 140/55 91 09/26/19 09:03 140/55 09/26/19 08:30 100 09/26/19 06:52 156/69 09/26/19 03:43 97.8 F 60 18 156/69 100 09/25/19 23:38 98.0 F 18 168/81 09/25/19 22:49 57 L 09/25/19 19:25 97.7 F 57 L 18 145/65 99 09/25/19 18:31 100 09/25/19 16:13 97.8 F 20 128/53 09/25/19 14:00 52 L 09/25/19 12:09 98.1 F 56 L 16 142/61 99 09/25/19 12:00 16 98 09/25/19 10:31 57 L 138/64 - Physical Examination General: No Apparent Distress HEENT: Positive: PERRL Neck: Positive: trachea midline Cardiac: Positive: Reg Rate and Rhythm Lungs: Positive: Decreased Breath Sounds Neuro: Positive: Grossly Intact - EKG Sinus rhythms and dysrhythmias: sinus rhythm AV and intraventricular conduction: intraventricular conducti Repolarization changes or abnormalities: nonspecific abnormality, ST segment, and/or T wave
[2019-09-26] MEDS ORDERED: ALBUTEROL 2.5 MG/3 ML NEBU IH PRN (09:44)
[2019-09-26] MEDS: CLOPIDOGREL 75 MG TAB PO SCH (10:26)
[2019-09-26] MEDS: ASPIRIN 81 MG TAB CHEW PO SCH (10:26)
[2019-09-26] MEDS: PANTOPRAZOLE 40 MG TAB PO SCH ×2 (10:26→22:18)
[2019-09-26] MEDS: RANOLAZINE ER 500 MG TAB 12HR PO SCH ×2 (10:26→22:16)
[2019-09-26] MEDS: METOPROLOL TARTRATE 50 MG TAB PO SCH ×2 (11:15→22:18)
--- NOTE | 2019-09-26 13:49 | Discharge Summary ---
Providers - Providers Date of Admission: 09/25/19 10:35 Attending physician: HELIO HUANG MD 09/23/19 22:22 Consult to Physician [CONS] Routine Comment: Consulting Provider: BLAINE KELLER Physician Instructions: Reason For Exam: hd 09/23/19 22:30 Consult to Physician [CONS] Routine Comment: Consulting Provider: ARIK PERAZA Physician Instructions: Reason For Exam: cp/ 09/26/19 09:37 Consult to Physician [CONS] Routine Comment: Consulting Provider: MIGEL BERMEO Physician Instructions: Reason For Exam: interstitial pulmonary disease vs pneumonia Primary care physician: NICOL JACOB Hospitalization Condition: Stable Hospital course: 69 year old -[place] Citizen female who has a history of coronary artery disease, end-stage renal disease, diabetes mellitus and hypertension presenting with left precordial chest pain and left arm pain which recorded during dialysis. Dialysis had to be stopped and patient was transferred to the hospital and admitted for further evaluation. Patient sees Dr. Wilber Peraza at [facility] and he is supposed to perform PCI with coronary stent implants. Patienrt admitted for Chest pain and NSTEMI Patient with chest pains and NSTEMI No symptoms at this time. Patient refusing IV Heparin Cardiac cath cancelled by Cardiology team, Medical management for this complex patient with Lung CA due to severe medical co-morbidities, advanced lung cancer and prior attempt at coronary angiography failed secondary to anatomy. Medical therapy for coronary artery disease. Attempt at cardiac cath in 2016 failed due to the gigantic ascending aortic aneurysm containing large ulcerated thrombus. Per cardiology NSTEMI: Medical management, Plavix, asa, BB Chronic dissecting ascending aortic aneurysm -deemed to be in operable by cardiothoracic surgery Complex multivessel CAD with 3 vessel CABG at [place] in 2007 End-stage renal disease on hemodialysis. Left upper lobe lung cancer with lymph node and hepatic metastasis. -Obtain pULMONARY CONSULT, NEBS Patient has not started treatment for her cancer. Chronic anemia and thrombocytopenia Hypotension- Leading to complication in management T2DM (type 2 diabetes mellitus): COnt hypoglycemics and coverage Hyperlipidemia dvt/gi PROPHY She denies any pain Se is chronically on Home oxygen After extensive discussion with cardiology and re-evaluation today, no further treatment was requested. Patient is to follow with cardiology and also oncologist and pulmonary outapteint Disposition: [id number] HOME UNDER [facility] Exam - Constitutional Vitals: Temp Pulse Resp BP Pulse Ox 98.5 F 58 L 18 152/68 91 09/26/19 13:00 09/26/19 13:00 09/26/19 13:00 09/26/19 13:00 09/26/19 13:00 Plan Activity: advance as tolerated, fall precautions Diet: low fat Special Instructions: record daily weights, record daily BP diary, record blood sugar diary Follow up with: NICOL JACOB MD [Primary Care Provider] - 7 Days KARTHIK CORDOBA MD [Staff Physician] - 7 Days MIGEL BERMEO MD [Staff Physician] - 7 Days Prescriptions: Valsartan [Diovan] 80 mg PO QDAY #60 tablet Ipratropium/Albuterol Sulfate [DUONEB *Not for PRN Use*] 1 ampul IH TID #90 ampul.neb Metoprolol [Lopressor TAB] 50 mg PO BID #60 tablet
[2019-09-26] MEDS ORDERED: IPRATROPIUM/ALBUTEROL SULFATE 3 ML AMPUL.NEB IH SCH (14:00)
[2019-09-26 14:32] LABS: Hematocrit 39.8 % (30.3-42.9); Mean Corpuscular HGB Conc 33 % (30-34); Mean Corpuscular Volume 93 fl (79-97); Platelet Count 179 K/mm3 (140-440); Red Blood Count 4.27 M/mm3 (3.65-5.03); Red Cell Distribution Width 18.2 % (13.2-15.2)
[2019-09-26] MEDS ORDERED: SODIUM CHLORIDE*PRIMING MACHINE ONLY FOR DIALYSIS MC ONE (14:54)
[2019-09-26 14:59] LABS: Calcium 9.9 mg/dL (8.4-10.2)
--- NOTE | 2019-09-26 17:38 | Progress Note ---
Assessment and Plan - Patient Problems (1) T2DM (type 2 diabetes mellitus) Current Visit: Yes Status: Chronic Qualifiers: Diabetes mellitus [employer] insulin use: unspecified nursing home insulin use status Plan to address problem: DM type II continue current medications. (2) End stage renal disease Current Visit: No Status: Acute Plan to address problem: ESRD ON hemodialysis continue HD on TTS schedule. (3) Hypertension Current Visit: No Status: Chronic Plan to address problem: HTN: CONTROLLED. continue current medications. (4) Metabolic acidosis Current Visit: Yes Status: Acute Plan to address problem: Metabolic acidosis 2/2 renal failure. Subjective Principal diagnosis: NSTEMI Interval history: 69 year old with ESRD on hemodialysis TTS with left arm AVF and recent diagnosis of malignancy Patient seen today I attest I saw the patient on dialysis denies any shortness of breath ,no edema Objective - Vital Signs Vital signs: Vital Signs - 12hr 09/26/19 09/26/19 09/26/19 06:52 08:30 09:03 Temperature Pulse Rate Pulse Rate [ Posterior Left Throughout] Respiratory Rate Respiratory Rate [Posterior Left Throughout] Blood Pressure 156/69 140/55 Blood Pressure [Right] O2 Sat by Pulse 100 Oximetry 09/26/19 09/26/19 09/26/19 09:06 10:55 11:15 Temperature 97.8 F Pulse Rate 58 L 58 L 58 L Pulse Rate [ Posterior Left Throughout] Respiratory 16 Rate Respiratory Rate [Posterior Left Throughout] Blood Pressure 159/66 Blood Pressure 140/55 159/66 [Right] O2 Sat by Pulse 91 Oximetry 09/26/19 09/26/19 09/26/19 13:00 13:44 14:01 Temperature 98.5 F Pulse Rate 58 L Pulse Rate [ 64 Posterior Left Throughout] Respiratory 18 Rate Respiratory 18 Rate [Posterior Left Throughout] Blood Pressure Blood Pressure 152/68 [Right] O2 Sat by Pulse 91 100 Oximetry - General Appearance General appearance: well-developed, well-nourished EENT: ATNC, PERRL Neck: no JVD Respiratory: Present: Clear to Ascultation Cardiology: regular, S1S2 Gastrointestinal: normal, normoactive bowel sounds Integumentary: no rash Neurologic: alert and oriented x3, CN 3-12 intact Psychiatric: mood/affect appropriate - Lab 09/26/19 14:01 09/26/19 14:01 Most recent lab results Calcium 9.9 mg/dL (8.4-10.2) 09/26/19 14:01 Medications & Allergies - Medications Allergies/Adverse Reactions: Allergies No Known Allergies Allergy (Verified 09/13/19 17:29) Home Medications: Home Medications Medication Instructions Recorded Confirmed Last Taken Type Ferric Citrate (Nf) [Auryxia] 210 mg PO AC 09/14/19 09/24/19 Unknown History ALBUTEROL NEB's [Proventil 0.083% 2.5 mg IH Q4HRT PRN nebu 09/16/19 09/24/19 Unknown Rx NEBS] Aspirin [Aspirin BABY CHEW TAB] 81 mg PO QDAY tab.chew 09/16/19 09/24/19 Unknown Rx AtorvaSTATin [Lipitor] 40 mg PO QHS tablet 09/16/19 09/24/19 Unknown Rx Clopidogrel [Plavix] 75 mg PO QDAY tablet 09/16/19 09/24/19 Unknown Rx Doxazosin [Cardura] 2 mg PO QDAY tablet 09/16/19 09/24/19 Unknown Rx Furosemide [Lasix TAB] 40 mg PO 0600,1800 tablet 09/16/19 09/24/19 Unknown Rx HYDROcodone/APAP 5-325 [Dillard 1 each PO Q4H PRN #12 tablet 09/16/19 09/24/19 Unknown Rx 5-325 mg TAB] Pantoprazole [Protonix TAB] 40 mg PO BID #60 09/16/19 09/24/19 Unknown Rx Ranolazine ER [Ranexa ER] 500 mg PO BID #60 tablet 09/16/19 09/24/19 Unknown Rx hydrALAZINE [Apresoline TAB] 100 mg PO Q8H tab 09/16/19 09/24/19 Unknown Rx Ipratropium/Albuterol Sulfate 1 ampul IH TID #90 ampul.neb 09/26/19 Unknown Rx [DUONEB *Not for PRN Use*] Metoprolol [Lopressor TAB] 50 mg PO BID #60 tablet 09/26/19 Unknown Rx Valsartan [Diovan] 80 mg PO QDAY #60 tablet 09/26/19 Unknown Rx Active Medications: Generic Name Dose Route Start Last Admin Trade Name Freq PRN Reason Stop Dose Admin Acetaminophen 650 mg 09/23/19 22:22 Tylenol PO Q4H PRN Pain MILD(1-3)/Fever >100.5/HALL Albuterol 2.5 mg 09/26/19 09:44 Proventil IH Q4HRT PRN Shortness Of Breath Albuterol/Ipratropium 1 ampul 09/26/19 14:00 09/26/19 13:41 Duoneb *Not For Prn Use* IH 1 ampul Q6HRT CHUYITA Administration Aspirin 81 mg 09/24/19 10:00 09/26/19 10:26 Baby Aspirin PO 81 mg QDAY CHUYITA Administration Atorvastatin Calcium 40 mg 09/24/19 22:00 09/25/19 22:49 Lipitor PO 40 mg QHS CHUYITA Administration Clopidogrel Bisulfate 75 mg 09/24/19 10:00 09/26/19 10:26 Plavix PO 75 mg QDAY CHUYITA Administration Dextrose 50 ml 09/24/19 00:20 09/25/19 12:31 D50w (25gm) Syringe IV 50 ml Q30MIN PRN Administration Hypoglycemia Protocol Insulin Human Lispro 0 unit 09/24/19 07:30 09/26/19 14:00 Humalog SUB-Q Not Given ACHS [facility] Protocol Metoprolol Tartrate 50 mg 09/24/19 22:00 09/26/19 11:15 Metoprolol PO Not Given BID [facility] Miscellaneous Medication 210 mg 09/24/19 07:30 Ferric Citrate (Nf) PO [facility] Nitroglycerin 0.4 mg 09/26/19 06:00 09/26/19 06:52 Nitro Dur TD 0.4 mg QDAY@0600 CHUYITA Administration Ondansetron HCl 4 mg 09/23/19 22:22 09/26/19 10:17 Zofran IV 4 mg Q8H PRN Administration Nausea And Vomiting Oxycodone/Acetaminophen 1 tab 09/23/19 22:32 09/26/19 10:49 Percocet 5/325 PO 1 tab Q4H PRN Administration Pain, Moderate (4-6) Pantoprazole Sodium 40 mg 09/24/19 10:00 09/26/19 10:26 Protonix PO 40 mg BID CHUYITA Administration Ranolazine 500 mg 09/24/19 10:00 09/26/19 10:26 Ranexa Er PO 500 mg BID [facility] Administration Sodium Chloride 10 ml 09/24/19 10:00 09/26/19 10:55 Sodium Chloride Flush Syringe 10 Ml IV 10 ml BID CHUYITA Administration Sodium Chloride 10 ml 09/23/19 22:22 09/26/19 01:36 Sodium Chloride Flush Syringe 10 Ml IV 10 ml PRN PRN Administration LINE FLUSH Valsartan 80 mg 09/27/19 10:00 Diovan PO QDAY CHUYITA
[2019-09-26 21:34] VITALS: BP 154/73
[2019-09-27] MEDS ORDERED: VALSARTAN 40 MG TAB PO SCH (10:00)
== END 2019-09-26 23:40 | disposition home or self-care (01) | DRG 280 ==
LOC: ED 16:24 → 4A 22:00 → OBSVTOIN 09-25 10:35
PROVIDERS: ADMIT Internal Medicine; ATTEND Internal Medicine
PROC: 5A1D70Z Performance of Urinary Filtration, Intermittent, Less than 6 Hours Per Day (ICD-10-PCS; principal; 2019-09-26)
PROC: 5A09357 Assistance with Respiratory Ventilation, Less than 24 Consecutive Hours, Continuous Positive Airway Pressure (ICD-10-PCS; 2019-09-26)
DX: I21.4 Non-ST elevation (NSTEMI) myocardial infarction (principal); N18.6 End stage renal disease; J96.01 Acute respiratory failure with hypoxia; I71.01 Dissection of thoracic aorta; I13.2 Hypertensive heart and chronic kidney disease with heart failure and with stage 5 chronic kidney disease, or end stage renal disease; E87.2 Acidosis; C34.12 Malignant neoplasm of upper lobe, left bronchus or lung; C77.9 Secondary and unspecified malignant neoplasm of lymph node, unspecified; C78.7 Secondary malignant neoplasm of liver and intrahepatic bile duct; I42.0 Dilated cardiomyopathy; I25.110 Atherosclerotic heart disease of native coronary artery with unstable angina pectoris; E11.22 Type 2 diabetes mellitus with diabetic chronic kidney disease; F17.210 Nicotine dependence, cigarettes, uncomplicated; J44.9 Chronic obstructive pulmonary disease, unspecified; I25.5 Ischemic cardiomyopathy; I73.9 Peripheral vascular disease, unspecified; N05.9 Unspecified nephritic syndrome with unspecified morphologic changes; I95.9 Hypotension, unspecified; E78.5 Hyperlipidemia, unspecified; D64.9 Anemia, unspecified; D69.6 Thrombocytopenia, unspecified; Z99.2 Dependence on renal dialysis; Z95.1 Presence of aortocoronary bypass graft; Z86.73 Personal history of transient ischemic attack (TIA), and cerebral infarction without residual deficits; Z90.710 Acquired absence of both cervix and uterus; Z82.49 Family history of ischemic heart disease and other diseases of the circulatory system; Z85.118 Personal history of other malignant neoplasm of bronchus and lung; Z79.899 Other long term (current) drug therapy
CPT/HCPCS: 36415; 70450; 71045; 78582; 80048; 80061; 82140; 82550; 82553; 82947; 82962; 84484; 85007; 85025; 85027; 85379; 85610; 85730; 87040; 93005; 93010; 93306; 94640; 94760; G0378; A9270-GY; A9540; A9558; J0692; J2060; J2270; J2405; J7030; J7040